=== PATIENT | female | born 1970 | race Caucasian/White ===

== ENCOUNTER 2019-04-02 06:40 | Inpatient (IN) | payer SELFPAY ==
[2019-04-02] MEDS ORDERED: morphine CARPU-JECT 4 MG/1 ML DISP.SYRIN IVPUSH ONE ×2 (06:42→06:44)
[2019-04-02] MEDS ORDERED: morphine SULFATE 4 MG/ML VIAL IVPUSH ONE (06:44)
[2019-04-02] MEDS ORDERED: morphine SULFATE 4 MG/ML VIAL ONE (06:50)
--- NOTE | 2019-04-02 07:09 | PDOC ---
Attending Attestation - Resident Resident Name: TanaSheri - HPI HPI: 04/02/19 08:03 Pt presents to the ED complaining of epigastric pain, nausea without vomiting and left flank pain. Reports that she went to [facility] yesterday, where she was diagnosed with kidney stone without imaging. Presents today because the pain is persistent and severe. Received 4 mg morphine without relief of her pain. - Physicial Exam PE: 04/02/19 08:08 Agree with resident exam. Patient is alert and awake and appears uncomfortable. HEENT: normocephalic, atraumatic CV: rrr no m/r/g pulm: CTA b/ l abdomen: soft, non distended, + epigastric tenderness without guarding or rebound. No CVA tenderness. - Medical Decision Making 04/02/19 08:15 Pt presents to the ED complaining of epigastric pain and nausea. History of Philip Fundiplication. Differential includes biliary disease, obstruction, pancreatitis, less likely ACS. Will check labs and EKG, give pain and nausea control and reassess.
[2019-04-02] MEDS ORDERED: ONDANSETRON 4 MG/2 ML VIAL IVPUSH ONE (07:14)
[2019-04-02] MEDS ORDERED: HYDROmorphone HCL CARPU-JECT 2 MG/1 ML DISP.SYRIN IVPUSH ONE (07:14)
[2019-04-02] MEDS ORDERED: FAMOTIDINE 20 MG/50 ML IVPB 20 MG/50 ML MG IVPB ONE ×3 (07:15→16:46)
[2019-04-02 07:16] VITALS: BMI 26.5
[2019-04-02] MEDS ORDERED: HYDROmorphone HCl 2 MG/ML VIAL ONE (07:20)
[2019-04-02] MEDS ORDERED: ONDANSETRON *ODT* 4 MG TABLET ONE (07:21)
[2019-04-02] MEDS ORDERED: METOCLOPRAMIDE HCL INJECTION 10 MG/2 ML VIAL IVPUSH ONE (07:54)
--- NOTE | 2019-04-02 07:56 | PDOC ---
History of Present Illness - General Chief Complaint: Pain Stated Complaint: ABD PAIN Time Seen by Provider: 04/02/19 07:08 - History of Present Illness Initial Comments: Dallas Giordano is a 49yo woman with a PMH of Philip fundiplication, kidney stones who presents with severe epigastric pain, nausea, and sweating as well as right flank pain. She reports that she had the flank pain yesterday, and she went to [facility]. She reports that she was diagnosed with a kidney stone; she was given morphine and zofran with relief of her symptoms and was discharged with Percocet and zofran. She felt better in the evening, but was unable to eat or drink due to nausea. This morning, she started to feel worse again. She tried taking her percocet and 8mg SL zofran without relief. She states that she "can't throw up" due to her surgery, but she has had persistent retching and nausea. She also reports sweating and severe epigastric pain. The percocet helped with the flank pain, but her other symptoms have continued. She says that she is unable to even drink water at home. Ms Giordano was given 4mg IV morphine as well as 0.5mg dilaudid, zofran, and pepcid after arrival in the ED, prior to my evaluation, and states that her flank pain has resolved but she continues to have severe nausea, persistent retching, and epigastric pain. Past History - Past Medical History Allergies/Adverse Reactions: Allergies Allergy/AdvReac Type Severity Reaction Status Date / Time No Known Allergies Allergy Verified 04/02/19 07:16 Home Medications: Ambulatory Orders Ondansetron HCl [Zofran] 4 mg PO BID 04/02/19 COPD: No - Surgical History Abdominal Surgery: Yes - Immunization History Immunization Up to Date: Yes - Suicide/Smoking/Psychosocial Hx Smoking History: Never smoked Have you smoked in the past 12 months: No Information on smoking cessation initiated: No Hx Alcohol Use: No Drug/Substance Use Hx: No Review of Systems - Review of Systems Comments:: General: No fevers, no chills, no weight or appetite change, no malaise, + sweating HEENT: No changes in vision, no changes in hearing, no congestion, no sore throat CV: No chest pain, no palpitations, no LE edema Pulm: No SOB, no cough, no wheezing GI: +Nausea, no vomiting, +abd pain, no change in bowel habits, no melena : No frequency, no urgency, no dysuria, +Rt flank pain Musc: No back pain, no joint swelling, no recent injury Skin: No rash, no lesions, no erythema Endo: No excessive thirst, no heat/cold intolerance Heme: No unusual bruising or bleeding, no swollen glands Neuro: No syncope, no numbness/tingling, no focal weakness Vasc: No claudication Psych: No recent change in mood, no SI or HI *Physical Exam - Vital Signs Last Vital Signs Temp Pulse Resp BP Pulse Ox 97.7 F 76 22 H 124/83 100 04/02/19 07:09 04/02/19 07:09 04/02/19 07:09 04/02/19 07:09 04/02/19 07:09 - Physical Exam Comments: General: Uncomfortable but in no acute distress HEENT: PERRL, EOMI, MMM, voice normal Cards: RRR, no murmur appreciated Pulm: Comfortable on room air, clear to auscultation bilaterally Abd: Soft, non-distended, epigastric TTP, well-healed laparoscopic surgical scars : Minimal CVA tenderness Ext: Atraumatic. No LE edema. ROM intact Vasc: Extremities WWP Skin: Normal color, no rashes or lesions Neuro: A&Ox3, CN grossly intact, normal speech, motor/sensory grossly intact and symmetric Psych: Anxious, upset ED Treatment Course - LABORATORY CBC & Chemistry Diagram: 04/02/19 08:04 04/02/19 08:04 - Medications Given in the ED: ED Medications Discontinued Medications Generic Name Dose Route Start Last Admin Trade Name Freq PRN Reason Stop Dose Admin Hydromorphone HCl 1 mg 04/02/19 07:14 04/02/19 07:31 Dilaudid Injection - IVPUSH 04/02/19 07:15 1 mg ONCE ONE Administration Famotidine/Sodium Chloride 20 mg in 50 mls @ 100 mls/hr 04/02/19 07:15 07:32 Pepcid 20 Mg Premixed Ivpb - IVPB 04/02/19 07:44 100 mls/hr ONCE ONE Administration Morphine Sulfate 4 mg 04/02/19 06:42 04/02/19 06:59 Morphine Injection - IVPUSH 04/02/19 06:43 Not Given ONCE ONE Morphine Sulfate 4 mg 04/02/19 06:44 04/02/19 06:58 Morphine Injection - IVPUSH 04/02/19 06:45 4 mg ONCE ONE Administration Ondansetron HCl 4 mg 04/02/19 07:14 04/02/19 07:32 Zofran Injection IVPUSH 04/02/19 07:15 4 mg ONCE ONE Administration Medical Decision Making - Medical Decision Making 04/02/19 07:56 Dallas Giordano is a 49yo woman with a PMH of Philip fundiplication, kidney stones who presents with severe epigastric pain, nausea, and sweating as well as right flank pain. She reports that she had the flank pain yesterday, and she went to [facility]. She reports that she was diagnosed with a kidney stone; she was given morphine and zofran with relief of her symptoms and was discharged with Percocet and zofran. She felt better in the evening, but was unable to eat or drink due to nausea. This morning, she started to feel worse again. She tried taking her percocet and 8mg SL zofran without relief. She states that she "can't throw up" due to her surgery, but she has had persistent retching and nausea. She also reports sweating and severe epigastric pain. The percocet helped with the flank pain, but her other symptoms have continued. She says that she is unable to even drink water at home. Ms Giordano was given 4mg IV morphine as well as 0.5mg dilaudid, zofran, and pepcid after arrival in the ED, prior to my evaluation, and states that her flank pain has resolved but 04/02/19 09:00 - Pt more comfortable, sleeping - Labs reviewed. CBC, chemistry unremarkable - UA w/ 3+ blood, c/w report of kidney stone 04/02/19 10:05 - CT shows 7mm left kidney stone, appears to be partially obstructing. Moderate- severe hydronephrosis and hydroureter - Reassessed pt. More comfortable, nausea improved - [employer] sent for admission for large kidney stone, severe hydro, and PO intolerance 04/02/19 10:29 - Spoke to Dr Mcdonnell. Will be admitted to med/surg on Dr Motley' service - Call placed to urology, waiting for call back 04/02/19 10:34 - Spoke to Dr Mcmanus. Recommending ceftriaxone, NPO. Will see later Discussed with Dr Guerrero. Sheri Fajardo PGY2 *DC/Admit/Observation/Transfer Diagnosis at time of Disposition: Left nephrolithiasis, Hydronephrosis of left kidney Nausea & vomiting Qualifiers: Vomiting type: unspecified Vomiting Intractability: unspecified Qualified Code( s): R11.2 - Nausea with vomiting, unspecified - Discharge Dispostion Condition at time of disposition: Fair Decision to Admit order: Yes - Referrals - Patient Instructions - Post Discharge Activity
[2019-04-02] MEDS ORDERED: METOCLOPRAMIDE HCL INJECTION 10 MG/2 ML VIAL ONE (08:29)
[2019-04-02 08:34] LABS: PH,URINE 5.5 (5.0-8.0); URINE APPEARANCE CLOUDY; URINE BILIRUBIN NEGATIVE (NEGATIVE); URINE COLOR YELLOW; URINE GLUCOSE (UA) TRACE (NEGATIVE); URINE KETONE 4+ (NEGATIVE); URINE LEUK ESTERASE NEGATIVE (NEGATIVE); URINE NITRITE NEGATIVE (NEGATIVE); URINE PROTEIN 1+ (NEGATIVE); URINE UROBILINOGEN 0.2 mg/dL (0.2-1.0)
[2019-04-02 08:41] LABS: BASO % 0.1 % (0-2.0); EOS % 0.1 % (0-4.5); HEMATOCRIT 34.7 % (32.4-45.2); LYMPH % 5.3 % (8-40); MCH 30.2 pg (25.7-33.7); MCHC 34.5 g/dl (32.0-36.0); MEAN CELL VOLUME 87.4 fl (80-96); MONO % 4.9 % (3.8-10.2); NEUT % 89.6 % (42.8-82.8); PLATELET COUNT 169 K/MM3 (134-434); RBC 3.96 M/mm3 (3.60-5.2); RDW 13.5 % (11.6-15.6); WHITE BLOOD COUNT 10.4 K/mm3 (4.0-10.0)
[2019-04-02 08:51] LABS: ALBUMIN 3.4 g/dl (3.4-5.0); BILIRUBIN,TOTAL 0.6 mg/dL (0.2-1); BLOOD UREA NITROGEN 12.9 mg/dL (7-18); CALCIUM 8.2 mg/dL (8.5-10.1); CREATININE 0.8 mg/dL (0.55-1.3); POTASSIUM 3.7 mmol/L (3.5-5.1); TOT PROT 6.3 g/dl (6.4-8.2)
[2019-04-02] MEDS ORDERED: ONDANSETRON 4 MG/2 ML VIAL IVPUSH PRN ×2 (10:56→17:37)
[2019-04-02] MEDS ORDERED: ACETAMINOPHEN 1000 MG/100 ML VIAL (NON FORMULARY) IVPB PRN ×2 (10:57→18:04)
[2019-04-02] MEDS ORDERED: LACTATED RINGERS SOLUTION 1,000 ML IV SCH ×2 (11:00→17:45)
[2019-04-02] MEDS ORDERED: CEFTRIAXONE 1 GM/50 ML BAG ONE (11:04)
--- NOTE | 2019-04-02 11:16 | HP ---
CHIEF COMPLAINT:left flank pain, epigastric discomfort PCP:Dr. Davis HISTORY OF PRESENT ILLNESS: Patient is a 49 year old female with past medical history significant for kidney stones and s/p Philip fundoplication (05/2018), presented to the ED due to worsening left flank pain, nausea, retching and epigastric pain for 1 day. Patient reported she experienced sudden severe 10/10 left flank pain radiating to the groin that started yesterday. She went to [facility] where she was diagnosed to have a kidney stone and was sent home on percocet and zofran for nausea, and was advised to drink plenty of water. She also reported minimal urine output despite 2L of IVF given to her at the hospital. Overnight, patient continued to experience the pain and nausea, with episodes of retching. Since the Philip fundoplication in 2017, patient was advised that she should not have episodes of retching or vomiting. This morning, with continued nausea, patient started experiencing epigastric pain and went to the ED. Patient reported denies any fever, chills, headache, dizziness, chest pain, SOB, palpitations, diarrhea, constipation. Of note, patient had history of multiple kidney stones for more than 15 years. She reported the stones would pass spontaneously and had no history of stent placement. She had stones sent to pathology before but is unsure of the results. ER course was notable for: (1)IV Morphine 4mg, Dilaudid 0.5mg (2)Zofran, pepcid, diphenhydramine (3)CTAP: 7mm Left distal ureteral stone, partially obstructing with moderately severe hydronephrosis and hydroureter. Recent Travel:denies PAST MEDICAL HISTORY: kidney stones PAST SURGICAL HISTORY: cholecystectomy Philip fundoplication Social History: Smoking:denies Alcohol:occasional Drugs: denies Family History: Daughter - kidney stones in her 30s, bilateral stent placed Allergies No Known Allergies Allergy (Verified 04/02/19 07:16) HOME MEDICATIONS: Home Medications Medication Instructions Recorded Ondansetron HCl [Zofran] 4 mg PO BID 04/02/19 REVIEW OF SYSTEMS CONSTITUTIONAL: Absent: fever, chills, diaphoresis, generalized weakness, malaise, loss of appetite, weight change HEENT: Absent: rhinorrhea, nasal congestion, throat pain, throat swelling, difficulty swallowing, mouth swelling, ear pain, eye pain, visual changes CARDIOVASCULAR: Absent: chest pain, syncope, palpitations, irregular heart rate, lightheadedness , peripheral edema RESPIRATORY: Absent: cough, shortness of breath, dyspnea with exertion, orthopnea, wheezing, stridor, hemoptysis GASTROINTESTINAL:epigastric pain, nausea, retching Absent: abdominal distension,vomiting, diarrhea, constipation, melena, hematochezia GENITOURINARY: Left flank pain Absent: dysuria, frequency, urgency, hesitancy, hematuria, genital pain MUSCULOSKELETAL: Absent: myalgia, arthralgia, joint swelling, back pain, neck pain SKIN: Absent: rash, itching, pallor HEMATOLOGIC/IMMUNOLOGIC: Absent: easy bleeding, easy bruising, lymphadenopathy, frequent infections ENDOCRINE: Absent: unexplained weight gain, unexplained weight loss, heat intolerance, cold intolerance NEUROLOGIC: Absent: headache, focal weakness or paresthesias, dizziness, unsteady gait, seizure, mental status changes, bladder or bowel incontinence PSYCHIATRIC: Absent: anxiety, depression, suicidal or homicidal ideation, hallucinations. PHYSICAL EXAMINATION Vital Signs - 24 hr 04/02/19 07:09 Temperature 97.7 F Pulse Rate 76 Respiratory 22 H Rate Blood Pressure 124/83 O2 Sat by Pulse 100 Oximetry (%) GENERAL: Awake, alert, and fully oriented, in no acute distress. HEAD: Normal with no signs of trauma. EYES: PERRLA, EOMI, sclera anicteric, conjunctiva clear. EARS, NOSE, THROAT: Moist mucous membranes. NECK: Normal range of motion, supple. LUNGS: Breath sounds equal, clear to auscultation bilaterally. HEART: Regular rate and rhythm, normal S1 and S2 without murmur, rub or gallop. ABDOMEN: Soft, nontender, not distended, normoactive bowel sounds. MUSCULOSKELETAL: Normal range of motion at all joints. +left CVA tenderness. UPPER EXTREMITIES: 2+ pulses, warm, well-perfused. No peripheral edema. LOWER EXTREMITIES: 2+ pulses, warm, well-perfused. No peripheral edema. NEUROLOGICAL: AAOx3. Cranial nerves II-XII grossly intact. Normal speech. Normal gait. PSYCHIATRIC: Cooperative. Good eye contact. Appropriate mood and affect. SKIN: Warm, dry, normal turgor, no rashes or lesions noted. Laboratory Results - last 24 hr 04/02/19 04/02/19 04/02/19 08:04 08:04 08:04 WBC 10.4 H RBC 3.96 Hgb 12.0 Hct 34.7 MCV 87.4 MCH 30.2 MCHC 34.5 RDW 13.5 Plt Count 169 MPV 10.0 Absolute Neuts (auto) 9.3 H Neutrophils % 89.6 H Lymphocytes % 5.3 L Monocytes % 4.9 Eosinophils % 0.1 Basophils % 0.1 Nucleated RBC % 0 Sodium 141 Potassium 3.7 Chloride 112 H Carbon Dioxide 23 Anion Gap 6 L BUN 12.9 Creatinine 0.8 Est GFR (CKD-EPI)AfAm 101.75 Est GFR (CKD-EPI)NonAf 87.79 Random Glucose 139 H Calcium 8.2 L Total Bilirubin 0.6 AST 56 H ALT 54 Alkaline Phosphatase 75 Total Protein 6.3 L Albumin 3.4 Lipase 100 Urine Color Urine Appearance Urine pH Ur Specific [place] Urine Protein Urine Glucose (UA) Urine Ketones Urine Blood Urine Nitrite Urine Bilirubin Urine Urobilinogen Ur Leukocyte Esterase Urine HCG, Qual 04/02/19 04/02/19 08:13 08:13 WBC RBC Hgb Hct MCV MCH MCHC RDW Plt Count MPV Absolute Neuts (auto) Neutrophils % Lymphocytes % Monocytes % Eosinophils % Basophils % Nucleated RBC % Sodium Potassium Chloride Carbon Dioxide Anion Gap BUN Creatinine Est GFR (CKD-EPI)AfAm Est GFR (CKD-EPI)NonAf Random Glucose Calcium Total Bilirubin AST ALT Alkaline Phosphatase Total Protein Albumin Lipase Urine Color Yellow Urine Appearance Cloudy Urine pH 5.5 Ur Specific [place] 1.031 Urine Protein 1+ H Urine Glucose (UA) Trace Urine Ketones 4+ H Urine Blood 3+ H Urine Nitrite Negative Urine Bilirubin Negative Urine Urobilinogen 0.2 Ur Leukocyte Esterase Negative Urine HCG, Qual Negative ASSESSMENT/PLAN: Patient is a 49 year old female with past medical history significant for kidney stones and s/p Philip fundoplication (05/2018), presented to the ED due to worsening left flank pain, nausea, retching and epigastric pain for 1 day. #Left ureteral stone -CTAP: 7mm Left distal ureteral stone, partially obstructing with moderately severe hydronephrosis and hydroureter. -Tylenol, Toradol and Dilaudid PRN for pain -Zofran PRN for nausea/vomiting -Will start Tamsulosin 0.4mg daily -IVF -Urology (Dr. Mcmanus) consulted. Recommendations appreciated. -NPO -IV Ceftriaxone given at the ED #FEN -IV D5-1/2 NS @200cc/hr -Electrolytes wnl, routine bmp monitoring -NPO #Prophylaxis -SCDs, for possible surgery #Disposition -full code -admit to med surg Visit type - Emergency Visit Emergency Visit: Yes ED Registration Date: 04/02/19 Care time: The patient presented to the Emergency Department on the above date and was hospitalized for further evaluation of their emergent condition. - New Patient This patient is new to me today: Yes Date on this admission: 04/08/19 - Critical Care Critical Care patient: No ATTENDING PHYSICIAN STATEMENT I saw and evaluated the patient. I reviewed the resident's note and discussed the case with the resident. I agree with the resident's findings and plan as documented. SUBJECTIVE: OBJECTIVE: ASSESSMENT AND PLAN:
[2019-04-02] MEDS ORDERED: morphine CARPU-JECT 2 MG/1 ML DISP.SYRIN IVPUSH ONE (11:50)
[2019-04-02] MEDS ORDERED: HYDROmorphone HCl 2 MG/ML VIAL IVPB PRN ×2 (11:52→18:04)
--- NOTE | 2019-04-02 11:55 | EKG ---
Test Reason : Blood Pressure : / mmHG Vent. Rate : 056 BPM Atrial Rate : 056 BPM P-R Int : 122 ms QRS Dur : 080 ms QT Int : 418 ms P-R-T Axes : 067 044 055 degrees QTc Int : 403 ms POOR DATA QUALITY, INTERPRETATION MAY BE ADVERSELY AFFECTED SINUS BRADYCARDIA NO PREVIOUS ECGS AVAILABLE Confirmed by RUFUS MARTÍNEZ MD ([id number]) on 04/02/2019 11:54:47 AM Referred By: Confirmed By:RUFUS MARTÍNEZ MD
[2019-04-02] MEDS ORDERED: KETOROLAC TROMETHAMINE 30 MG/1 ML VIAL IM SCH (12:00)
[2019-04-02] MEDS ORDERED: DEXTROSE 5%-0.45% SALINE 1,000 ML IV SCH (12:00)
[2019-04-02] MEDS: ONDANSETRON 4 MG/2 ML VIAL IVPUSH PRN ×2 (12:04→16:35)
[2019-04-02] MEDS ORDERED: TAMSULOSIN HCL 0.4 MG CAP PO SCH (12:15)
--- NOTE | 2019-04-02 15:43 | PN ---
Teaching Attending Note Name of Resident: Magda Reyes ATTENDING PHYSICIAN STATEMENT I saw and evaluated the patient. I reviewed the resident's note and discussed the case with the resident. I agree with the resident's findings and plan as documented. SUBJECTIVE:49yo F wtih PMH recurrent nephrolithasis never requiring intervention and was always conservatively managed. c/o L flank pain assoc with nausea but no vomiting. Pain radiating to the groin and went to [facility] and told she had kidney stone and sent home on percocet and zofran. return due to worsening pain. states she has poor diet with lots of soda and red meats. pain now resolved with pain medication. denies CP, SOB, fever, chills, diarrhea family history significant for nephrolithasis OBJECTIVE: Last Vital Signs Temp Pulse Resp BP Pulse Ox 97.1 F L 65 16 97/59 L 100 04/02/19 11:20 04/02/19 11:20 04/02/19 11:20 04/02/19 11:20 04/02/19 11:20 General NAD CV S1 S2 RRR no murmur/rub/gallop Lungs CTA B/L no wheezing/rales/rhonchi Abdomen soft NT/ND no flank tenderness or suprapubic tenderness ASSESSMENT AND PLAN: 49yo F wtih PMH recurrent nephrolithasis with L flank pain with radiation to the groin and found to have 7mm renal stone wiht moderate-severe hydronephrosis 1. L sided nephrolithasis with hydronephrosis- Medicine admission. obstructing stone will need intervention. NPO, IVF, pain control and flomax. Ceftriaxone x1 given. strain urine although low possiblity of passage on its own. Urology aware and plan for OR tonight. will need stone analysis. counselling on dietary changes. will need repeat U/s next week to evaluate for resolution of hydro. follow up further recommendations per urology 2. DVT ppx- SCD 3. anticipate discharge in next 24H
[2019-04-02] MEDS ORDERED: PROPOFOL 20 ML ONE (16:34)
[2019-04-02] MEDS ORDERED: MIDAZOLAM HCL 2 MG/2 ML SINGLE DOSE VIAL ONE (16:34)
[2019-04-02] MEDS ORDERED: ACETAMINOPHEN INJECTION 100 ML IVPB ONE (16:49)
[2019-04-02] MEDS ORDERED: SUCCINYLCHOLINE CHLORIDE 200 MG/10 ML SYRINGE ONE (16:53)
[2019-04-02] MEDS ORDERED: ceFAZolin SODIUM 1 GM VIAL IVPB ONE (17:01)
--- NOTE | 2019-04-02 17:31 | OP ---
Operative Note - Note: Operative Date: 04/02/19 Pre-Operative Diagnosis: left ureteral stone, hydro Operation: left ULL, stent Findings: left ureteral stone Post-Operative Diagnosis: Same as Pre-op Surgeon: Holden Mcmanus Anesthesia: General Drains & Tubes with Location: 22x 6 JJ ureteral stent. left
[2019-04-02] MEDS ORDERED: oxyCODONE HCL 5 MG TABLET PO PRN (17:37)
[2019-04-02] MEDS ORDERED: PROMETHAZINE HCL 25 MG/1 ML VIAL IVPUSH PRN (17:37)
[2019-04-02] MEDS: DEXTROSE 5%-0.45% SALINE 1,000 ML IV SCH (18:00)
[2019-04-02] MEDS: KETOROLAC TROMETHAMINE 30 MG/1 ML VIAL IM SCH (21:08)
[2019-04-03] MEDS: KETOROLAC TROMETHAMINE 30 MG/1 ML VIAL IM SCH ×2 (03:00→09:16)
[2019-04-03] MEDS: DEXTROSE 5%-0.45% SALINE 1,000 ML IV SCH (03:10)
[2019-04-03 08:21] LABS: BASO % 0.2 % (0-2.0); HEMATOCRIT 31.2 % (32.4-45.2); HEMOGLOBIN 10.6 GM/dL (10.7-15.3); LYMPH % 8.4 % (8-40); MCH 29.7 pg (25.7-33.7); MCHC 33.9 g/dl (32.0-36.0); MEAN CELL VOLUME 87.4 fl (80-96); MEAN PLT VOLUME 10.2 fl (7.5-11.1); MONO % 9.3 % (3.8-10.2); NEUT % 82.1 % (42.8-82.8); PLATELET COUNT 156 K/MM3 (134-434); RBC 3.57 M/mm3 (3.60-5.2); RDW 13.5 % (11.6-15.6); WHITE BLOOD COUNT 11.1 K/mm3 (4.0-10.0)
[2019-04-03] MEDS ORDERED: TAMSULOSIN HCL 0.4 MG CAP PO SCH ×2 (08:30)
[2019-04-03 08:36] LABS: ALBUMIN 2.7 g/dl (3.4-5.0); BILIRUBIN,TOTAL 0.3 mg/dL (0.2-1); CALCIUM 7.9 mg/dL (8.5-10.1); CREATININE 0.8 mg/dL (0.55-1.3); MAGNESIUM 1.6 mg/dL (1.8-2.4); PHOSPHOROUS 2.5 mg/dL (2.5-4.9); POTASSIUM 3.8 mmol/L (3.5-5.1); TOT PROT 5.4 g/dl (6.4-8.2)
[2019-04-03] MEDS ORDERED: ENOXAPARIN NA (PORCINE) 40 MG/0.4 ML DISP.SYRIN SQ SCH (10:00)
--- NOTE | 2019-04-03 12:02 | DS ---
Physical Exam: SUBJECTIVE: Patient seen and examined. asymptomatic. states the stent fell out yesterday. Vanessaafen was made aware and said no intervention at this time. pt has not have any dysuria or hematuria. denies Cp, SOb, fever, chills, N/V/C/D OBJECTIVE: Vital Signs Period Temp Pulse Resp BP Sys/[place] Pulse Ox Last 24 Hr 97.6 F-98.6 F 9-89 16-20 97-135/59-87 95-100 PHYSICAL EXAM GENERAL: The patient is awake, alert, and fully oriented, in no acute distress. HEAD: Normal with no signs of trauma. EYES: PERRL, extraocular movements intact, sclera anicteric, conjunctiva clear. ENT: Ears normal, nares patent, oropharynx clear without exudates, moist mucous membranes. NECK: Trachea midline, full range of motion, supple. LUNGS: Breath sounds equal, clear to auscultation bilaterally, no wheezes, no crackles, no accessory muscle use. HEART: Regular rate and rhythm, S1, S2 without murmur, rub or gallop. ABDOMEN: Soft, nontender, nondistended, normoactive bowel sounds, no guarding, no rebound, no hepatosplenomegaly, no masses. EXTREMITIES: 2+ pulses, warm, well-perfused, no edema. NEUROLOGICAL: Cranial nerves II through XII grossly intact. Normal speech, gait not observed. PSYCH: Normal mood, normal affect. SKIN: Warm, dry, normal turgor, no rashes or lesions noted. LABS Laboratory Results - last 24 hr 04/03/19 04/03/19 04/03/19 07:00 07:00 07:00 WBC 11.1 H RBC 3.57 L Hgb 10.6 L Hct 31.2 L MCV 87.4 MCH 29.7 MCHC 33.9 RDW 13.5 Plt Count 156 MPV 10.2 Absolute Neuts (auto) 9.1 H Neutrophils % 82.1 Lymphocytes % 8.4 D Monocytes % 9.3 D Eosinophils % 0.0 D Basophils % 0.2 Nucleated RBC % 0 Sodium 141 Potassium 3.8 Chloride 111 H Carbon Dioxide 25 Anion Gap 6 L BUN 8.0 Creatinine 0.8 Est GFR (CKD-EPI)AfAm 101.75 Est GFR (CKD-EPI)NonAf 87.79 Random Glucose 136 H Calcium 7.9 L Phosphorus 2.5 Magnesium 1.6 L Total Bilirubin 0.3 AST 34 ALT 47 Alkaline Phosphatase 60 Total Protein 5.4 L Albumin 2.7 L Blood Type A POSITIVE Antibody Screen Negative 04/03/19 09:55 WBC RBC Hgb Hct MCV MCH MCHC RDW Plt Count MPV Absolute Neuts (auto) Neutrophils % Lymphocytes % Monocytes % Eosinophils % Basophils % Nucleated RBC % Sodium Potassium Chloride Carbon Dioxide Anion Gap BUN Creatinine Est GFR (CKD-EPI)AfAm Est GFR (CKD-EPI)NonAf Random Glucose Calcium Phosphorus Magnesium Total Bilirubin AST ALT Alkaline Phosphatase Total Protein Albumin Blood Type A POSITIVE Antibody Screen HOSPITAL COURSE: Date of Admission:04/02/19 Date of Discharge: 04/03/19 Admitting diagnosis: L obstructing nephrolithasis with mod-severe hydronephrosis Pre hospital course 49 year old female with past medical history significant for kidney stones and s/p Philip fundoplication (05/2018), presented to the ED due to worsening left flank pain, nausea, retching and epigastric pain for 1 day. Patient reported she experienced sudden severe 10/10 left flank pain radiating to the groin that started yesterday. She went to [facility] where she was diagnosed to have a kidney stone and was sent home on percocet and zofran for nausea, and was advised to drink plenty of water. She also reported minimal urine output despite 2L of IVF given to her at the hospital. Overnight, patient continued to experience the pain and nausea, with episodes of retching. Since the Philip fundoplication in 2017, patient was advised that she should not have episodes of retching or vomiting. This morning, with continued nausea, patient started experiencing epigastric pain and went to the ED. Patient reported denies any fever, chills, headache, dizziness, chest pain, SOB, palpitations, diarrhea, constipation. Of note, patient had history of multiple kidney stones for more than 15 years. She reported the stones would pass spontaneously and had no history of stent placement. She had stones sent to pathology before but is unsure of the results. Subsequent hospital course Admitted to medicine. NPO, IVF and flomax. went for stent placement. stent fell out but was told that Urology was contacted and stated nothing to do at this time. pain resolved and tolerating diet. d/c home on flomax with urology follow up. stressed importance of follow up and dietary changes to prevent stone formation. will need repeat renal u/s to evlaute for hydro resolution Minutes to complete discharge: 40 Discharge Summary Reason For Visit: NAUSEA AND VOMITING,HYDRONEPHROSIS, OF LFT KIDNEY, Current Active Problems Hydronephrosis of left kidney (Acute) Left nephrolithiasis (Acute) Nausea & vomiting (Acute) Condition: Good - Instructions Diet, Activity, Other Instructions: You were admitted to the hospital due to a kidney stone that was blocked on your left side. This resulted in your Left kidney to be swollen. You underwent a procedure to alleviate that blockage. A stent was placed but it did fall out Conitnues to drink plenty of water. Refer to handout on foods to avoid Follow up with your primary care doctor as you will need to have a repeat ultrasound of your kidneys to make sure this swelling has resolved Follow up with urology on 04/06 at 9am. His contact information has been provided. You should have your stones evaluated to see what type they are to prevent them in the future. Return to the ER if your symptoms worsen or develop fever (temp >101) Referrals: Randy Oliveira MD [Staff Physician] - Holden Mcmanus MD [Staff Physician] - Disposition: HOME - Home Medications Comprehensive Discharge Medication List: Ambulatory Orders Tamsulosin HCl [Flomax -] 0.4 mg PO DAILY@0830 #30 [id number] 04/03/19 This patient is new to me today: No Emergency Visit: Yes ED Registration Date: 04/02/19 Care time: The patient presented to the Emergency Department on the above date and was hospitalized for further evaluation of their emergent condition. Critical Care patient: No - Discharge Referral Referred to [facility] No
[2019-04-03 12:09] VITALS: BP 145/84; PULSE 79; TEMP 99
--- NOTE | 2019-04-03 12:17 | OP ---
DATE OF OPERATION: 04/02/2019 PREOPERATIVE DIAGNOSIS: Left ureteral calculus. POSTOPERATIVE DIAGNOSIS: Left ureteral calculus. PROCEDURE: Cystoscopy, left ureteroscopy, laser lithotripsy, left ureteral stent placement. ANESTHESIA: General. SURGEON: Holden Mcmanus MD FINDINGS: A 7-mm stone in distal left ureter. DRAINS: The 6 x 22 double-J ureteral stent. PREOPERATIVE INDICATIONS: The patient is a 49-year-old female who presents with an obstructing 7-mm stone in her ureter. After attempts at medical expulsive therapy, she was brought to the OR for laser lithotripsy. The risks, benefits, and alternatives were discussed with the patient including the risk of bleeding, infection, injury to the ureter and injury to adjacent organs. She understands the risks and agrees to the procedure. OPERATION: The patient was brought to the OR, placed on the table in the supine position, given anesthesia and antibiotics, and placed in the modified lithotomy position. The groin was prepped and draped sterilely. Cystoscopy was performed. Scope was placed in the bladder. There was a mild cystocele noted. However, nothing within the ladder was remarkable. Both UOs were seen, and a wire was passed up into the left kidney, at which point, a cruz of fluid was seen. A 10-Guyanese dual lumen catheter was used to dilated the ureteral orifice, and a 7.5-Guyanese semi-rigid ureteroscope was passed into the left ureter. The stone was visualized in the distal ureter. Using Holmium Laser Fiber, the stone was broken up into small pieces of sand. No other stones were seen along the course of the ureter. Over the remaining wire, a 6 x 22 double-J ureteral stent was placed, one loop in the kidney and one loop in the bladder. Bladder was emptied. The patient was woken up. HOLDEN MCMANUS M.D. [id number]
--- NOTE | 2019-04-07 20:25 | PATH ---
Surgical Pathology Report Patient Name: JASON BUTLER [facility]. Rec. #: [id number] /Age/Gender: 1970 (Age: 49) / F Account: [id number] Location: [address] [place] [address]/[facility] Taken: 04/06/2019 Received: 04/06/2019 Reported: 04/07/2019 Physicians: Adelia Motley M.D. Specimen(s) Received STONE Clinical History Stone Final Diagnosis STONE, REMOVAL: CALCULI. MACROSCOPIC DIAGNOSIS. Electronically Signed Camryn Rodríguez M.D. Gross Description Received fresh labeled "stone analysis," is a 0.4 cm greatest dimension mack nielsen, irregular calculus which is sent for chemical analysis. DL/04/06/2019 saudi/04/06/2019
== END 2019-04-03 13:51 | disposition home or self-care (01) | DRG 463 ==
LOC: JER 06:40 → JERBED 10:30 → J6S 11:36
PROVIDERS: ADMIT Internal Medicine; ATTEND Internal Medicine
PROC: 0T778DZ Dilation of Left Ureter with Intraluminal Device, Via Natural or Artificial Opening Endoscopic (ICD-10-PCS; principal; 2019-04-02 16:50)
DX: N13.6 Pyonephrosis (principal); N20.1 Calculus of ureter; R11.2 Nausea with vomiting, unspecified; K21.9 Gastro-esophageal reflux disease without esophagitis; R33.9 Retention of urine, unspecified; E87.6 Hypokalemia
CPT/HCPCS: 36415; 74176-TC; 76000-TC-FY; 80053; 81003; 83690; 83735; 84100; 84703; 85025; 86850; 86900; 86901; 88300-TC; 93005; 93010; 94760; 99285-25; J0131

== ENCOUNTER 2019-04-04 09:26 | Emergency (ER) | payer BC | END 2019-04-04 12:15 | disposition home or self-care (01) | LOC: JER 09:26 ==

== ENCOUNTER 2019-04-04 14:59 | Inpatient (IN) | payer BC ==
[2019-04-04] MEDS ORDERED: METOCLOPRAMIDE HCL INJECTION 10 MG/2 ML VIAL IVPUSH ONE ×2 (15:18→23:00)
[2019-04-04] MEDS ORDERED: FAMOTIDINE 20 MG/50 ML IVPB 20 MG/50 ML MG IVPB ONE ×2 (15:18→15:58)
[2019-04-04] MEDS ORDERED: morphine CARPU-JECT 2 MG/1 ML DISP.SYRIN IVPUSH ONE ×2 (15:18→19:35)
[2019-04-04] MEDS ORDERED: METOCLOPRAMIDE HCL INJECTION 10 MG/2 ML VIAL ONE ×2 (15:56→23:11)
[2019-04-04] MEDS ORDERED: LORazepam 2 MG/ML SDV VIAL ONE ×2 (15:59→19:38)
[2019-04-04 16:01] LABS: BASO % 0.5 % (0-2.0); EOS % 0.2 % (0-4.5); HEMATOCRIT 35.8 % (32.4-45.2); HEMOGLOBIN 11.9 GM/dL (10.7-15.3); LYMPH % 14.9 % (8-40); MCH 28.9 pg (25.7-33.7); MCHC 33.2 g/dl (32.0-36.0); MEAN CELL VOLUME 86.9 fl (80-96); MEAN PLT VOLUME 9.9 fl (7.5-11.1); MONO % 8.2 % (3.8-10.2); NEUT % 76.2 % (42.8-82.8); PLATELET COUNT 189 K/MM3 (134-434); RBC 4.12 M/mm3 (3.60-5.2); RDW 13.4 % (11.6-15.6); WHITE BLOOD COUNT 11.2 K/mm3 (4.0-10.0)
[2019-04-04 16:24] LABS: ALBUMIN 3.6 g/dl (3.4-5.0); BILIRUBIN,TOTAL 0.5 mg/dL (0.2-1); BLOOD UREA NITROGEN 10.7 mg/dL (7-18); CALCIUM 8.6 mg/dL (8.5-10.1); CREATININE 0.9 mg/dL (0.55-1.3); POTASSIUM 3.1 mmol/L (3.5-5.1); TOT PROT 6.7 g/dl (6.4-8.2)
--- NOTE | 2019-04-04 16:31 | PDOC ---
Documentation entered by Nancy Desai SCRIBE, acting as scribe for Gladys Hermosillo DO. Gladys Hermosillo, : This documentation has been prepared by the Lloyd ma Mackenzie, SCRIBE, under my direction and personally reviewed by me in its entirety. I confirm that the documentation accurately reflects all work , treatment, procedures, and medical decision making performed by me. History of Present Illness - General Chief Complaint: Pain Stated Complaint: PAIN Time Seen by Provider: 04/04/19 15:09 - History of Present Illness Initial Comments: The patient is a 49 year old female, with a significant PMH of Maksim fundoplication and kidney stones (04/02) who is returning to the emergency department for the second time today with extreme sharp epigastric abdominal pain. Patient reports her pain is similar to symptoms she felt before having her Nisan fundoplication surgery several years ago and is unrelated to symptoms of her UTI from earlier today and unrelated to symptoms associated with her kidney stone episode on 04/02. Patient states after being discharged today she went home, tried to eat something and immediately after felt symptoms of nausea and abdominal pain prompting her return. Patient reports the pain is worsened upon forced inhalation. LBM was today and normal, however she notes she has barely eaten since the onset of her kidney stone episode 4 days ago. The patient denies chest pain, shortness of breath, headache and dizziness. Denies fever, diarrhea and constipation. Allergies: NKA Past surgical history: As per note PCP: NOS 04/04/19 15:49 Past History - Past Medical History Allergies/Adverse Reactions: Allergies Allergy/AdvReac Type Severity Reaction Status Date / Time No Known Allergies Allergy Verified 04/04/19 09:30 Home Medications: Ambulatory Orders Tamsulosin HCl [Flomax -] 0.4 mg PO DAILY@0830 #30 cap.er.24h 04/03/19 Cephalexin Monohydrate [Keflex -] 500 mg PO BID #14 capsule 04/04/19 COPD: No Kidney Stones: Yes (removed 04/02/19) - Surgical History Abdominal Surgery: Yes - Immunization History Immunization Up to Date: Yes - Suicide/Smoking/Psychosocial Hx Smoking History: Never smoked Have you smoked in the past 12 months: No Hx Alcohol Use: No Drug/Substance Use Hx: No Review of Systems - Review of Systems Able to Perform ROS?: Yes Comments:: GENERAL/CONSTITUTIONAL: (+)Chills. No fever. No weakness. HEAD, EYES, EARS, NOSE AND THROAT: No change in vision. No ear pain or discharge. No sore throat. GASTROINTESTINAL:(+)Severe epigastric abdominal pain. (+)Nausea. No vomiting, diarrhea or constipation. GENITOURINARY: (+)Hematuria. CARDIOVASCULAR: No chest pain or shortness of breath. RESPIRATORY: No cough, wheezing, or hemoptysis. MUSCULOSKELETAL: No joint or muscle swelling or pain. No neck or back pain. SKIN: No rash NEUROLOGIC: No headache, vertigo, loss of consciousness, or change in strength/ sensation. ENDOCRINE: No increased thirst. No abnormal weight change. HEMATOLOGIC/LYMPHATIC: No anemia, easy bleeding, or history of blood clots. ALLERGIC/IMMUNOLOGIC: No hives or skin allergy. 04/04/19 15:51 *Physical Exam - Vital Signs Last Vital Signs Temp Pulse Resp BP Pulse Ox 0/0 L 04/04/19 15:32 - Physical Exam Comments: Constitutional: (+)Acutely distressed. Awake, alert, oriented. Head: Normocephalic. Atraumatic Eyes: PERRL. EOMI. Conjunctivae are not pale. ENT: Mucous membranes are moist and intact. Posterior pharynx without exudates or erythema. Uvula midline. Neck: Supple. Full ROM. No lymphadenopathy. Cardiovascular: Regular rate. Regular rhythm. S1, S2 regular. Distal pulses are 2+ and symmetric. Pulmonary/Chest: No evidence of respiratory distress. Clear to auscultation bilaterally No wheezing, rales or rhonchi. Abdominal: (+)Severe midline epigastric tenderness. (+)Moderate superpubic tenderness. Soft and non-distended. No rebound, guarding or rigidity. No organomegaly. No palpable masses. Good bowel sounds. Back: LCVA tenderness. Musculoskeletal: No edema. No cyanosis. No clubbing. Full range of motion in all extremities. Nocalf tenderness. Radial/pedal pulses are intact and 2+ bilaterally Skin: Skin is warm and dry. No petechiae. No purpura. Neurological: Alert and oriented to person, place, and time. Cranial nerves II -XII are grossly intact. Normal speech. Strength is grossly symmetric. No sensory deficits. Psychiatric: Good eye contact. Normal interaction, affect and behavior. 04/04/19 15:50 ED Treatment Course - LABORATORY CBC & Chemistry Diagram: 04/04/19 15:54 04/04/19 15:54 - ADDITIONAL ORDERS Additional order review: Laboratory Results 04/04/19 15:54 Lipase 64 L 04/04/19 15:54 RBC 4.12 MCV 86.9 MCHC 33.2 RDW 13.4 MPV 9.9 Neutrophils % 76.2 Lymphocytes % 14.9 Monocytes % 8.2 Eosinophils % 0.2 Basophils % 0.5 - RADIOLOGY Radiology Studies Ordered: Category Date Time Status ABDOMEN & PELVIS CT WITH CONTR [CT] Stat CT Scan 04/04/19 15:58 Ordered CHEST PA & LAT [RAD] Stat Radiology 04/04/19 15:18 Ordered Medical Decision Making - Medical Decision Making 04/04/19 16:20 a/p: 49yo female seen earlier today for flank pain and dx with a uti presents back via ambulance for eval of upper abd pain -pt s/p sophie fundoplication at [facility] 2017 ago -pt also s/p ureteral stent for renal stone on friday with Dr. Mcmanus -pt states acute worsening of epigastric pain after eating soup today -pt has dry heaving and nausea -epigastric ttp -will send labs, ct abd/pelvis to eval surgical site -will medicate for n/v -pt hyperventilating -will give ativan for anxiety, nausea -will monitor and reassess 04/04/19 16:30 labs reviewed lipase neg 04/04/19 17:01 pt signed out to the oncoming ED attending pending ct imaging and re-eval will need potassium replacement when awake and ct neg *DC/Admit/Observation/Transfer Diagnosis at time of Disposition: Nausea & vomiting - Referrals - Patient Instructions - Post Discharge Activity - Attestations Physician Attestion: 04/04/19 17:02 I, Dr. Gladys Hermosillo, DO, attest that this document has been prepared under my direction and personally reviewed by me in its entirety. I further attest, that it accurately reflects all work, treatment, procedures and medical decision -making performed by me.
[2019-04-04] MEDS ORDERED: ONDANSETRON 4 MG/2 ML VIAL IVPUSH ONE ×2 (19:35→21:43)
[2019-04-04] MEDS ORDERED: ONDANSETRON 4 MG/2 ML VIAL ONE ×2 (19:38→21:43)
[2019-04-04] MEDS ORDERED: MORPHINE SULFATE 2 MG/ML VIAL ONE (19:38)
[2019-04-04] MEDS ORDERED: SODIUM CHLORIDE 1,000 ML IV STA (23:01)
[2019-04-04] MEDS ORDERED: POTASSIUM CHLORIDE TABS 20 MEQ TABLET.ER (FP) PO ONE ×2 (23:01→23:43)
--- NOTE | 2019-04-04 23:03 | PDOC ---
*Physical Exam - Vital Signs Last Vital Signs Temp Pulse Resp BP Pulse Ox 98.1 F 60 18 141/78 100 04/04/19 15:31 04/04/19 19:49 04/04/19 19:49 04/04/19 19:49 04/04/19 19:49 ED Treatment Course - LABORATORY CBC & Chemistry Diagram: 04/04/19 15:54 04/04/19 15:54 - ADDITIONAL ORDERS Additional order review: Laboratory Results 04/04/19 04/04/19 04/04/19 15:54 15:54 15:54 WBC 11.2 H RBC 4.12 Hgb 11.9 Hct 35.8 MCV 86.9 MCH 28.9 MCHC 33.2 RDW 13.4 Plt Count 189 MPV 9.9 Absolute Neuts (auto) 8.6 H Neutrophils % 76.2 Lymphocytes % 14.9 Monocytes % 8.2 Eosinophils % 0.2 Basophils % 0.5 Nucleated RBC % 0 Sodium 141 Potassium 3.1 L Chloride 106 Carbon Dioxide 24 Anion Gap 11 BUN 10.7 Creatinine 0.9 Est GFR (CKD-EPI)AfAm 88.25 Est GFR (CKD-EPI)NonAf 76.14 Random Glucose 113 H Calcium 8.6 Total Bilirubin 0.5 AST 34 ALT 52 Alkaline Phosphatase 73 Creatine Kinase Troponin I Total Protein 6.7 Albumin 3.6 Lipase 64 L 04/04/19 15:54 WBC RBC Hgb Hct MCV MCH MCHC RDW Plt Count MPV Absolute Neuts (auto) Neutrophils % Lymphocytes % Monocytes % Eosinophils % Basophils % Nucleated RBC % Sodium Potassium Chloride Carbon Dioxide Anion Gap BUN Creatinine Est GFR (CKD-EPI)AfAm Est GFR (CKD-EPI)NonAf Random Glucose Calcium Total Bilirubin AST ALT Alkaline Phosphatase Creatine Kinase 115 Troponin I < 0.02 Total Protein Albumin Lipase 04/04/19 15:54 RBC 4.12 MCV 86.9 MCHC 33.2 RDW 13.4 MPV 9.9 Neutrophils % 76.2 Lymphocytes % 14.9 Monocytes % 8.2 Eosinophils % 0.2 Basophils % 0.5 - Medications Given in the ED: ED Medications Discontinued Medications Generic Name Dose Route Start Last Admin Trade Name Freq PRN Reason Stop Dose Admin Famotidine/Sodium Chloride 20 mg in 50 mls @ 100 mls/hr 04/04/19 15:18 16:27 Pepcid 20 Mg Premixed Ivpb - IVPB 04/04/19 15:47 100 mls/hr ONCE ONE Administration Lorazepam 1 mg 04/04/19 15:57 04/04/19 16:27 Ativan Injection - IVPUSH 04/04/19 15:58 1 mg ONCE ONE Administration Lorazepam 1 mg 04/04/19 19:35 04/04/19 20:03 Ativan Injection - IVPUSH 04/04/19 19:36 1 mg ONCE ONE Administration Metoclopramide HCl 10 mg 04/04/19 15:18 04/04/19 16:27 Reglan Injection - IVPUSH 04/04/19 15:19 10 mg ONCE ONE Administration Morphine Sulfate 2 mg 04/04/19 15:18 04/04/19 17:00 Morphine Injection - IVPUSH 04/04/19 15:19 Not Given ONCE ONE Morphine Sulfate 2 mg 04/04/19 19:35 04/04/19 20:03 Morphine Injection - IVPUSH 04/04/19 19:36 2 mg ONCE ONE Administration Ondansetron HCl 4 mg 04/04/19 19:35 04/04/19 20:03 Zofran Injection IVPUSH 04/04/19 19:36 4 mg ONCE ONE Administration Ondansetron HCl 4 mg 04/04/19 21:43 04/04/19 21:46 Zofran Injection IVPUSH 04/04/19 21:44 4 mg ONCE ONE Administration Medical Decision Making - Medical Decision Making 04/04/19 23:02 CAT scan shows moderate left hydroureterureteronephrosis due to a 7 mm calculus and/or just beyond the left UVJ There may be another punctate calculus in the proximal left ureter. No intrarenal calculus. No AAA discussed with urologist, Dr. Ramos who treated her 24 hours ago and he for follow her in the hospital for her kidney stone 04/05/19 00:12 There was an addendum placed on her ct scan that reads:there are a few gas bubbles at the right margin of the Philip fundoplication which may be intraluminal but their precise location is uncertain. *DC/Admit/Observation/Transfer Diagnosis at time of Disposition: Hydronephrosis of left kidney, Left nephrolithiasis, Epigastric abdominal pain Intractable nausea and vomiting Qualifiers: Vomiting type: unspecified Qualified Code(s): R11.2 - Nausea with vomiting, unspecified - Discharge Dispostion Condition at time of disposition: Improved Decision to Admit order: Yes - Referrals - Patient Instructions - Post Discharge Activity
[2019-04-04] MEDS ORDERED: TAMSULOSIN HCL 0.4 MG CAP PO ONE (23:06)
--- NOTE | 2019-04-04 23:41 | HP ---
CHIEF COMPLAINT: Abdominal Pain PCP: Dr. Davis HISTORY OF PRESENT ILLNESS: 49 F with PMH significant for renal calculi and GERD (s/p Philip fundoplication ) who presents today with 1 day of nausea and abdominal pain. She was discharged from this hospital 2 days ago after being treated with laser lithotripsy for a 7mm stone that was in the distal third of the left ureter. She was also seen earlier today in the ED but did not have abdominal pain and nausea to this extent and was able to go home. After going home she tried to eat some soup, felt nauseous and immediately returned. She endorses not feeling abdominal pain or nauseous after her procedure on Friday, then on Friday she began having nausea without vomiting, and abdominal pain which has gradually worsened. She localizes the pain midline abdominally and to the right upper and lower quadrants of the abdomen. She believes it is due to the fundoplication procedure she had approximately a year ago. She has had one episode of diarrhea since returning to the hospital in the evening today. She notes some hematuria in the morning today, but has not had any dysuria since her procedure on Friday. She does not endorse back pain, or pain in the groin region. She has felt chills but denies subjective fevers, denies chest pain, and shortness of breath. ER course was notable for: (1)Patient had a CT Abdomen and Pelvis completed with few tiny gas bubbles at the right margin of the Philip fundoplication which may be intraluminal but precise location is uncertain. (2)Was given Zofran 4mg (x2), Morphine 2mg, Ativan 1 mg (x2), Reglan 10 mg, and pepcid 20 mg, Kdur 20 mEq given, and started on 1L of NS. (3)Ceftriaxone 1 gram, Flomax 0.8 mg was given. Recent Travel: None PAST MEDICAL HISTORY: Kidney Stones PAST SURGICAL HISTORY: Philip fundoplication, cholecystecomy Social History: Smoking: Denies Alcohol: Denies Drugs: Denies Family History: Denies Allergies No Known Allergies Allergy (Verified 04/04/19 09:30) HOME MEDICATIONS: Home Medications Medication Instructions Recorded Tamsulosin HCl [Flomax -] 0.4 mg PO DAILY@0830 #30 cap.er.24h 04/03/19 Cephalexin Monohydrate [Keflex -] 500 mg PO BID #14 capsule 04/04/19 REVIEW OF SYSTEMS CONSTITUTIONAL: chills Absent: fever, diaphoresis, generalized weakness, malaise, loss of appetite, weight change HEENT: Absent: rhinorrhea, nasal congestion, throat pain, throat swelling, difficulty swallowing, mouth swelling, ear pain, eye pain, visual changes CARDIOVASCULAR: Absent: chest pain, syncope, palpitations, irregular heart rate, lightheadedness , peripheral edema RESPIRATORY: Absent: cough, shortness of breath, dyspnea with exertion, orthopnea, wheezing, stridor, hemoptysis GASTROINTESTINAL: abdominal pain, nausea, diarrhea Absent: abdominal distension,vomiting, constipation, melena, hematochezia GENITOURINARY: hematuria Absent: dysuria, frequency, urgency, hesitancy, flank pain, genital pain MUSCULOSKELETAL: Absent: myalgia, arthralgia, joint swelling, back pain, neck pain NEUROLOGIC: headache Absent: focal weakness or paresthesias, dizziness, unsteady gait, seizure, mental status changes, bladder or bowel incontinence PHYSICAL EXAMINATION Vital Signs - 24 hr 04/04/19 04/04/19 04/04/19 15:31 15:32 19:49 Temperature 98.1 F Pulse Rate [ 80 60 Left Radial] Respiratory 16 18 Rate Blood Pressure 0/0 L Blood Pressure 126/77 141/78 [Left Arm] O2 Sat by Pulse 98 100 Oximetry (%) GENERAL: Patient in distress, Awake, alert, and fully oriented HEAD: Normal with no signs of trauma. EYES: Pupils equal, round and reactive to light, extraocular movements intact LUNGS: Breath sounds equal, clear to auscultation bilaterally. No wheezes, and no crackles. HEART: Regular rate and rhythm, normal S1 and S2 without murmur, rub or gallop. ABDOMEN: Tender to palpation in the right upper and lower quadrants, tender in the epigastric region. Non tender in the suprapubic region. Not distended, normoactive bowel sounds, no guarding, no rebound, no masses. MUSCULOSKELETAL: Left sided CVA tenderness UPPER EXTREMITIES: 2+ pulses, warm, well-perfused. . LOWER EXTREMITIES: 2+ pulses, warm, well-perfused. NEUROLOGICAL: Cranial nerves II-XII intact. Normal speech. PSYCHIATRIC: Cooperative at times, but would stop replying and ignore examiner occasionally. Laboratory Results - last 24 hr 04/04/19 04/04/1919 15:54 15:54 15:54 WBC 11.2 H RBC 4.12 Hgb 11.9 Hct 35.8 MCV 86.9 MCH 28.9 MCHC 33.2 RDW 13.4 Plt Count 189 MPV 9.9 Absolute Neuts (auto) 8.6 H Neutrophils % 76.2 Lymphocytes % 14.9 Monocytes % 8.2 Eosinophils % 0.2 Basophils % 0.5 Nucleated RBC % 0 Sodium 141 Potassium 3.1 L Chloride 106 Carbon Dioxide 24 Anion Gap 11 BUN 10.7 Creatinine 0.9 Est GFR (CKD-EPI)AfAm 88.25 Est GFR (CKD-EPI)NonAf 76.14 Random Glucose 113 H Calcium 8.6 Total Bilirubin 0.5 AST 34 ALT 52 Alkaline Phosphatase 73 Creatine Kinase 115 Troponin I < 0.02 Total Protein 6.7 Albumin 3.6 Lipase 04/04/19 15:54 WBC RBC Hgb Hct MCV MCH MCHC RDW Plt Count MPV Absolute Neuts (auto) Neutrophils % Lymphocytes % Monocytes % Eosinophils % Basophils % Nucleated RBC % Sodium Potassium Chloride Carbon Dioxide Anion Gap BUN Creatinine Est GFR (CKD-EPI)AfAm Est GFR (CKD-EPI)NonAf Random Glucose Calcium Total Bilirubin AST ALT Alkaline Phosphatase Creatine Kinase Troponin I Total Protein Albumin Lipase 64 L ASSESSMENT/PLAN: 49 F with PMH of renal calculi who presents today with abdominal pain and left sided flank pain likely due to recurrent kidney stone causing emphysematous pyelonephritis. 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 However CT shows 7 mm stone today at or just beyond left ureterovesical junction with small gas bubble in the kidney. WBC is 11.2. NS @ 75 ml/hr Meropenem and Vancomycin given Consulted Urology Consulted ID 2)Abdominal pain Patient complaining of abdominal pain and nausea. CT scan also noted gas bubbles at right margin of Philip fundoplication, precise location uncertain. Morphine 2 mg IV PRN Zofran 4 mg IV PRN GI consulted 3)Hypokalemia Patient was given 20 mEq of K+ in the ED. Will follow up in AM and give 20 mEq if K+ <3.5 DVT Prophylaxis: SCD's F: NS @75 ml/hr E: Trend BMP N: NPO Dispo: Admit to medicine floors Problem List - Problem (1) Epigastric abdominal pain Code(s): R10.13 - EPIGASTRIC PAIN (2) Hydronephrosis of left kidney Code(s): N13.30 - UNSPECIFIED HYDRONEPHROSIS (3) Left nephrolithiasis Code(s): N20.0 - CALCULUS OF KIDNEY (4) UTI (urinary tract infection) Code(s): N39.0 - URINARY TRACT INFECTION, SITE NOT SPECIFIED Visit type - Emergency Visit Emergency Visit: Yes ED Registration Date: 04/04/19 Care time: The patient presented to the Emergency Department on the above date and was hospitalized for further evaluation of their emergent condition. - New Patient This patient is new to me today: Yes Date on this admission: 04/04/19 - Critical Care Critical Care patient: No ATTENDING PHYSICIAN STATEMENT I saw and evaluated the patient. I reviewed the resident's note and discussed the case with the resident. I agree with the resident's findings and plan as documented. SUBJECTIVE: OBJECTIVE: ASSESSMENT AND PLAN:
[2019-04-04] MEDS ORDERED: TAMSULOSIN HCL 0.4 MG CAP ONE (23:43)
[2019-04-04] MEDS ORDERED: LACTATED RINGERS SOLUTION 1,000 ML IV SCH (23:45)
--- NOTE | 2019-04-04 23:45 | PN ---
Teaching Attending Note ATTENDING PHYSICIAN STATEMENT I saw and evaluated the patient. I reviewed the resident's note and discussed the case with the resident. I agree with the resident's findings and plan as documented. Seen and examined; please refer to resident note for further historical information. Briefly, this is a 49 y/o female presenting to the ER with a CC of abdominal pain similar to what she had prior to her fundopication (similar to severe GERD) and pain similar to renal stone/UTI. She was discharged 04/03 for hydronephrosis and stent placement; stent fell out at that time (please see DC summary for further historical information). She was seen earlier in the ER and diagnosed with a UTI and was treated with abx and then discharged on keflex ; at that time urology told ER that she had laser procedure to the stone and it was gone. She then returned with continued pain. Imaging was now obtained and CT shows moderate hydroureteronephrosis due to 7mm calculus at or just beyond the uvj. There may be another calculus in the prox. left ureter. Small gas bubble noted in the proximal L-renal pelvis with some free pelvic fluid. Addendum states that there is gas bubbles to the R-side of the sophie but when I spoke to the radiologist with imaging combination saw operator he told me they were very likely intraluminal and could be a normal finding given the anatomical changes done with the procedure. She is stable. No urine culture obtained last visit and no prior micro; she does hav documented urinary tract obstruction which guidelines dictate requires ESBL and MRSA coverage. Giving vanco and merrem and consulting ID given abx required. VS, labs,imaging reviewed NAD, AAO, anxious RRR s1/2 NC AT EOMI Mild flank pain to fist percussion L>R Tender to palpation upper abdomen, ND, +BS CN2-12 wnl, no fnd Normal mood, appropriate behavior Prelim CT discussed with radiology No prior micro EKG reviewed ASSESSMENT AND PLAN: Patient presents with abdominal pain/L-flank pain; she is found to have a +UA with known obstruction and symptoms with imaging findings suggestive of emphysematious urinary infection. She is found to have bubbling by the R-side of her sophie fundopication with similar sx. As she had the laser procedure and urology states that the stone was gone, the calculi seen on imaging may represent new formation # Acute cystitis with emphasematous features with concurrent obstruction -Followup final read to further characterize the gas bubbles. # L-hydroureteronephrosis 2/2 stones, recurring, s/p laser procedure. # Recurring renal stones # Potential sophie anatomical issue # Anxiety
[2019-04-04] MEDS ORDERED: CEFTRIAXONE 1 GM in DEXTROSE 5%-WATER - 50 ML IVPB SCH (23:58)
[2019-04-05] MEDS: KCL 10 MEQ IVPB 10 MEQ/100 ML INFUS.BAG IVPB SCH ×3 (00:12→00:57)
[2019-04-05] MEDS ORDERED: DEXTROSE 5%-WATER - 50 ML IVPB ONE (00:38)
[2019-04-05] MEDS ORDERED: cefTRIAXone SODIUM 1 GM VIAL ONE (00:38)
[2019-04-05] MEDS: MORPHINE SULFATE 2 MG/ML VIAL IVPUSH PRN ×3 (00:42→21:49)
[2019-04-05] MEDS: SODIUM CHLORIDE 1,000 ML IV SCH (00:46)
[2019-04-05] MEDS: PANTOPRAZOLE SODIUM 40 MG VIAL IVPUSH SCH ×2 (00:49→10:01)
[2019-04-05] MEDS ORDERED: VANCOMYCIN HCL 1,500 MG in DEXTROSE 5%-WATER - 500 ML IVPB SCH ×2 (01:15→13:00)
[2019-04-05 01:29] VITALS: BMI 27.6
[2019-04-05] MEDS: MEROPENEM 1 GM in DEXTROSE 5%-WATER 100 ML IVPB SCH ×2 (02:34→10:01)
[2019-04-05] MEDS ORDERED: MEROPENEM 1 GM VIAL (RESTRICTED TO ID) IVPB ONE ×2 (04:31→09:46)
[2019-04-05] MEDS ORDERED: DEXTROSE 5%-WATER 100 ML IVPB ONE ×2 (04:31→09:47)
[2019-04-05 07:36] LABS: ALBUMIN 2.7 g/dl (3.4-5.0); BILIRUBIN,TOTAL 0.5 mg/dL (0.2-1); BLOOD UREA NITROGEN 7.9 mg/dL (7-18); CALCIUM 7.7 mg/dL (8.5-10.1); CREATININE 0.6 mg/dL (0.55-1.3); POTASSIUM 3.6 mmol/L (3.5-5.1); TOT PROT 5.3 g/dl (6.4-8.2)
[2019-04-05 07:48] LABS: BASO % 0.3 % (0-2.0); HEMATOCRIT 28.6 % (32.4-45.2); HEMOGLOBIN 9.9 GM/dL (10.7-15.3); LYMPH % 26.1 % (8-40); MCH 30.1 pg (25.7-33.7); MCHC 34.7 g/dl (32.0-36.0); MEAN CELL VOLUME 86.9 fl (80-96); MEAN PLT VOLUME 10.3 fl (7.5-11.1); MONO % 11.9 % (3.8-10.2); NEUT % 61.7 % (42.8-82.8); PLATELET COUNT 142 K/MM3 (134-434); RDW 13.5 % (11.6-15.6); WHITE BLOOD COUNT 9.1 K/mm3 (4.0-10.0)
[2019-04-05 08:02] LABS: INR 1.13 (0.83-1.09); PROTHROMBIN TIME (PATIENT) 13.4 SEC (9.7-13.0)
[2019-04-05 08:04] LABS: ACTIVATED PTT 30.3 SECONDS (25.2-36.5)
--- NOTE | 2019-04-05 11:13 | CON.GI ---
Consult Consult Specialty:: Gastroenterology Referred by:: Dr. Meyer Reason for Consultation:: Abdominal pain, abnormal imaging - History of Present Illness History of Present Illness: 49yo female h/o cholecystectomy, renal stones, GERD s/p Philip fundoplication () at [facility] presenting with worsening abdominal pain, n/v x 2 days. Pt reports developing worsening left flank and suprapubic pain on with associated nausea prompting hospitalization on Friday. Initially states she went to [facility] then discharged with analgesics. Then came to [facility] due to persisting pain. CT imaging revealing left urethral stone s/p lithotripsy and stenting on 04/02. Pt discharged on friday however had recurrent pain mostly in epigastrium with associated nausea after attempting to eat soup yesterday, feels need to vomit though unable in setting of recent fundoplication though has been retching. Currently feeling better, mild upper abdominal discomfort and dysuria, denies nausea, fever/chills. Repeat CT imaging revealing migrated stone now at UVJ with hydronephrosis and air bubble within pelvis. Also initial concern for air bubbles at margin of region of fundoplication, not reported on final reading. - History Source History Provided By: Patient - Alcohol/Substance Use Hx Alcohol Use: No - Smoking History Smoking history: Never smoked Have you smoked in the past 12 months: No Home Medications - Allergies Allergies/Adverse Reactions: Allergies Allergy/AdvReac Type Severity Reaction Status Date / Time No Known Allergies Allergy Verified 04/04/19 09:30 - Home Medications Home Medications: Ambulatory Orders Tamsulosin HCl [Flomax -] 0.4 mg PO DAILY@0830 #30 cap.er.24h 04/03/19 Cephalexin Monohydrate [Keflex -] 500 mg PO 04/05/19 Cholecalciferol (Vitamin D3) [Vitamin D3] 50,000 unit PO WEEKLY 04/05/19 Gabapentin 300 mg PO DAILY 04/05/19 Ibuprofen [Motrin -] 600 mg PO PRN 04/05/19 Review of Systems - Review of Systems Constitutional: reports: No Symptoms Cardiovascular: reports: No Symptoms Respiratory: reports: No Symptoms Gastrointestinal: reports: Abdominal Pain, Nausea Genitourinary: reports: Burning, Dysuria Physical Exam-GI Vital Signs: Vital Signs Temperature 98.8 F 04/05/19 06:12 Pulse Rate 63 04/05/19 06:12 Respiratory Rate 20 04/05/19 06:12 Blood Pressure 100/59 L 04/05/19 06:12 O2 Sat by Pulse Oximetry (%) 98 04/05/19 01:19 Constitutional: Yes: Well Nourished, No Distress, Calm Cardiovascular: Yes: WNL, Regular Rate and Rhythm Respiratory: Yes: WNL, Regular, CTA Bilaterally ...Palpate: Yes: Other (Abd soft, mild tenderness in periumbilical and epigastric region on palpation, nondistended, no rebound, guarding or rigidity) Labs: CBC, BMP 04/05/19 06:16 04/05/19 06:16 INR, PTT INR 1.13 (0.83-1.09) H 04/05/19 06:16 Imaging - Results Cat Scan: Report Reviewed, Image Reviewed Problem List - Problems (1) Epigastric abdominal pain Assessment/Plan: 49yo female h/o cholecystectomy, renal stones, GERD s/p Philip fundoplication () presenting with worsening abdominal pain, n/v x 2 days with evidence of left urethral stone s/p lithotripsy and stent on 04/02 with recurrent abdominal pain mostly epigastric. Repeat CT imaging initially with concern for air near region of fundoplication ?intraluminal, though final report revealing stone at UVJ with hydronephrosis and air bubbles in pelvis, no free air. Abd exam benign. Etiology for pain likely secondary to persisting/migrated renal stone, low clinical suspicion for gastric pathology or fundoplication tear/wrap slippage/malfunction. -Could obtain barium swallow/UGI series with gastrograffin to further evaluate -Continue PPI daily -Further recommendations regarding renal stone/hydronephrosis per urology Code(s): R10.13 - EPIGASTRIC PAIN
--- NOTE | 2019-04-05 13:47 | PN ---
Physical Exam: SUBJECTIVE: Patient seen and examined. Very anxious. Endorses 6/10 midepigastric pain; pain does not radiate. Associated with nausea, but states she cannot and has not been able to vomit since the Philip fundoplication procedure. Pt had 1 nonbloody "very very large diarrhea" overnight. OBJECTIVE: Vital Signs Period Temp Pulse Resp BP Sys/[place] Pulse Ox Last 24 Hr 98.1 F-99.1 F 60-80 16-20 0-141/0-78 98-100 GENERAL: The patient is awake, alert, and fully oriented, in mild distress. LUNGS: Breath sounds equal, clear to auscultation bilaterally, no wheezes, no crackles, no accessory muscle use. HEART: Regular rate and rhythm, S1, S2 without murmur, rub or gallop. ABDOMEN: Midline scar noted from prior C-sxn. Midepigastric and periumbilical tenderness to palpation. Soft, nondistended, normoactive bowel sounds, no guarding. EXTREMITIES: 2+ pulses, warm, well-perfused, no edema. PSYCH: Anxious mood, affect appropriate to mood. Laboratory Results - last 24 hr Laboratory Last Values WBC 9.1 K/mm3 (4.0-10.0) 04/05/19 06:16 RBC 3.30 M/mm3 (3.60-5.2) L 04/05/19 06:16 Hgb 9.9 GM/dL (10.7-15.3) L 04/05/19 06:16 Hct 28.6 % (32.4-45.2) L D 04/05/19 06:16 MCV 86.9 fl (80-96) 04/05/19 06:16 MCH 30.1 pg (25.7-33.7) 04/05/19 06:16 MCHC 34.7 g/dl (32.0-36.0) 04/05/19 06:16 RDW 13.5 % (11.6-15.6) 04/05/19 06:16 Plt Count 142 K/MM3 (134-434) D 04/05/19 06:16 MPV 10.3 fl (7.5-11.1) 04/05/19 06:16 Absolute Neuts (auto) 5.6 K/mm3 (1.5-8.0) 04/05/19 06:16 Neutrophils % 61.7 % (42.8-82.8) 04/05/19 06:16 Lymphocytes % 26.1 % (8-40) D 04/05/19 06:16 Monocytes % 11.9 % (3.8-10.2) H 04/05/19 06:16 Eosinophils % 0.0 % (0-4.5) D 04/05/19 06:16 Basophils % 0.3 % (0-2.0) 04/05/19 06:16 Nucleated RBC % 0 % (0-0) 04/05/19 06:16 PT with INR 13.40 SEC (9.7-13.0) H 04/05/19 06:16 INR 1.13 (0.83-1.09) H 04/05/19 06:16 PTT (Actin FS) 30.3 SECONDS (25.2-36.5) 04/05/19 06:16 Sodium 142 mmol/L (136-145) 04/05/19 06:16 Potassium 3.6 mmol/L (3.5-5.1) 04/05/19 06:16 Chloride 108 mmol/L (98-107) H 04/05/19 06:16 Carbon Dioxide 28 mmol/L (21-32) 04/05/19 06:16 Anion Gap 6 MMOL/L (8-16) L 04/05/19 06:16 BUN 7.9 mg/dL (7-18) 04/05/19 06:16 Creatinine 0.6 mg/dL (0.55-1.3) 04/05/19 06:16 Est GFR (CKD-EPI)AfAm 125.80 04/05/19 06:16 Est GFR (CKD-EPI)NonAf 108.54 04/05/19 06:16 Random Glucose 96 mg/dL (74-106) 04/05/19 06:16 Calcium 7.7 mg/dL (8.5-10.1) L 04/05/19 06:16 Magnesium 2.0 mg/dL (1.8-2.4) 04/05/19 06:16 Total Bilirubin 0.5 mg/dL (0.2-1) 04/05/19 06:16 AST 25 U/L (15-37) 04/05/19 06:16 ALT 45 U/L (13-61) 04/05/19 06:16 Alkaline Phosphatase 61 U/L (45-117) 04/05/19 06:16 Creatine Kinase 115 U/L (26-192) 04/04/19 15:54 Troponin I < 0.02 ng/ml (0.00-0.05) 04/04/19 15:54 Total Protein 5.3 g/dl (6.4-8.2) L 04/05/19 06:16 Albumin 2.7 g/dl (3.4-5.0) L 04/05/19 06:16 Lipase 64 U/L (73-393) L 04/04/19 15:54 Urine Color Yellow 04/05/19 15:20 Urine Appearance Clear 04/05/19 15:20 Urine pH 7.0 (5.0-8.0) D 04/05/19 15:20 Ur Specific [place] 1.005 (1.010-1.035) L 04/05/19 15:20 Urine Protein Negative (NEGATIVE) 04/05/19 15:20 Urine Glucose (UA) Negative (NEGATIVE) 04/05/19 15:20 Urine Ketones Negative (NEGATIVE) 04/05/19 15:20 Urine Blood 3+ (NEGATIVE) H 04/05/19 15:20 Urine Nitrite Negative (NEGATIVE) 04/05/19 15:20 Urine Bilirubin Negative (NEGATIVE) 04/05/19 15:20 Urine Urobilinogen 0.2 mg/dL (0.2-1.0) 04/05/19 15:20 Ur Leukocyte Esterase Trace (NEGATIVE) 04/05/19 15:20 Blood Type A POSITIVE 04/05/19 06:16 Antibody Screen Negative 04/05/19 06:16 Active Medications Current Medications Current Medications Sodium Chloride (Normal Saline -) 1,000 mls @ 75 mls/hr IV ASDIR JUAN RAMON Last Admin: 04/05/19 00:46 Dose: 75 mls/hr Morphine Sulfate (Morphine Sulfate) 2 mg IVPUSH Q6H PRN PRN Reason: PAIN LEVEL 4 - 6 Last Admin: 04/05/19 11:06 Dose: 2 mg Ondansetron HCl (Zofran Injection) 4 mg IVPUSH Q6H PRN PRN Reason: NAUSEA Pantoprazole Sodium (Protonix Iv) 40 mg IVPUSH DAILY [facility] Last Admin: 04/05/19 10:01 Dose: 40 mg Tamsulosin HCl (Flomax -) 0.4 mg PO DAILY@0830 [facility] Imaging: ABD XR: PELVIC PHLEBOLITH. CLIPS FROM PRIOR CHOLECYSTECTOMY ASSESSMENT/PLAN: 49 y.o. F PMH GERD s/p Philip fundoplication, L sided nephrolithiasis s/p lithotripsy and stent placement 04/03/19 (stent fell out post-procedure) presented with epigastric pain and nausea without emesis. Found to have a 7mm stone at/ just beyond left UVJ and gas @ rt margin of Philip fundoplication. #Hydroureteronephrosis 2/2 L nephrolithiasis -S/p Urology-performed lithotripsy w/ stent placement 04/03/19; subsequently stent fell out, uro aware -Repeat CT abd/pel: 7mm left UVJ calculus w/ moderately severe hydronephrosis. Stone has migrated distally since 04/02/19. An air bubble seen w/in left renal pelvis- poss related to recent manipulation or gas-forming organism. Hepatomegaly & diffuse fatty infiltration of liver. Free pelvic fluid. -OR tomorrow for repeat lithotropsy, NPO at midnight -Uro on board (Dr. Mcmanus) #Epigastric pain -F/u upper GI series -GI following #Pain control -Morphine 2g IV q6h PRN #Nausea -Zofran 4mg IV q6h PRN #FEN -NS @75 mL/ hr -Monitor lytes -Regular diet, NPO at midnight #DVT PPX -SCDs Visit type - Emergency Visit Emergency Visit: No - New Patient This patient is new to me today: No - Critical Care Critical Care patient: No ATTENDING PHYSICIAN STATEMENT I saw and evaluated the patient. I reviewed the resident's note and discussed the case with the resident. I agree with the resident's findings and plan as documented. SUBJECTIVE: OBJECTIVE: ASSESSMENT AND PLAN:
--- NOTE | 2019-04-05 15:22 | CON.GU ---
Consult - History of Present Illness History of Present Illness: 49 yo female s/p recent ureteroscopy/laser litho for 7mm LDU stone now readmitted after pulling her stent out and recurrence of pain. CT shows left DU fragments, No fever/chills - Alcohol/Substance Use Hx Alcohol Use: No - Smoking History Smoking history: Never smoked Have you smoked in the past 12 months: No Home Medications - Allergies Allergies/Adverse Reactions: Allergies Allergy/AdvReac Type Severity Reaction Status Date / Time No Known Allergies Allergy Verified 04/04/19 09:30 - Home Medications Home Medications: Ambulatory Orders Tamsulosin HCl [Flomax -] 0.4 mg PO DAILY@0830 #30 cap.er.24h 04/03/19 Cephalexin Monohydrate [Keflex -] 500 mg PO 04/05/19 Cholecalciferol (Vitamin D3) [Vitamin D3] 50,000 unit PO WEEKLY 04/05/19 Cyclobenzaprine HCl [Flexeril 10 mg] 10 mg PO BID PRN 04/05/19 Gabapentin 300 mg PO DAILY 04/05/19 Ibuprofen [Motrin -] 600 mg PO PRN 04/05/19 Physical Exam- Vital Signs: Vital Signs Temperature 98.5 F 04/05/19 12:00 Pulse Rate 66 04/05/19 12:00 Respiratory Rate 20 04/05/19 12:00 Blood Pressure 125/77 04/05/19 12:00 O2 Sat by Pulse Oximetry (%) 98 04/05/19 09:00 Labs: CBC, BMP 04/05/19 06:16 04/05/19 06:16 Imaging - Results Cat Scan: Report Reviewed Problem List - Problems (1) Left nephrolithiasis Code(s): N20.0 - CALCULUS OF KIDNEY Assessment/Plan trial of conservative management with IVF hydration, analgesics, flomax if fails then repeat ureteroscopy
--- NOTE | 2019-04-05 16:16 | PN ---
Teaching Attending Note Name of Resident: Celsa Cohen ATTENDING PHYSICIAN STATEMENT I saw and evaluated the patient. I reviewed the resident's note and discussed the case with the resident. I agree with the resident's findings and plan as documented. SUBJECTIVE:feels much better today. slightly nauseated but overall better. had large watery BM last night. denies Cp, SOB, fevr, chills, N/V/C or hematuria OBJECTIVE: Last Vital Signs Temp Pulse Resp BP Pulse Ox 98.5 F 66 20 125/77 98 04/05/19 12:00 04/05/19 12:00 04/05/19 12:00 04/05/19 12:00 04/05/19 09:00 General NAD CV S1 s2 RRR no murmur/rub/gallop Lungs CTA B/L no wheezing/rales/rhonchi Abdomen soft NT/ND no flank pain ASSESSMENT AND PLAN: 49yo F with PMH GERD s/p sophie fundoplication and nephrolithasis with 7mm obstructing stone with lithotripsy and stent placement 04/03 presentd with worsening abdominal pain and nausea with dry heaves and found to have a 7 mm obstructing stone and some gas found around the region of the fundoplication 1. L nephrolithasis with moderate hydro-s/p lithotripsy and stent placement on however stent fell out and urology said patient didnt require furhter intervention at this time, radiology now reading stone is still there. AXR done to further evaluate. may need repeat stent placement. was started on meropenem for gas in the renal pelvis but this is more consistent with recent manipulation of Gu tract. pt is afebrile with mild leukoctosis and clinically stable and do not think she has emphysematous pyelo. will d/c meropenem and obtain UA 2. Epigastric pain- concern for leakage from fundoplication. pt was having dry heaves but denies vomiting. will do upper Gi series tomorrow to further evaluate. GI on board 3. DVT ppx- hep sq
[2019-04-05 16:39] LABS: URINE APPEARANCE CLEAR; URINE BILIRUBIN NEGATIVE (NEGATIVE); URINE COLOR YELLOW; URINE GLUCOSE (UA) NEGATIVE (NEGATIVE); URINE KETONE NEGATIVE (NEGATIVE); URINE LEUK ESTERASE TRACE (NEGATIVE); URINE NITRITE NEGATIVE (NEGATIVE); URINE PROTEIN NEGATIVE (NEGATIVE); URINE UROBILINOGEN 0.2 mg/dL (0.2-1.0)
[2019-04-05 17:55] LABS: EPI CELLS 6.1 /HPF (0-5/HPF); URINE BACTERIA 2.9 /hpf (NEGATIVE); URINE RBC 2.7 /hpf (0-4); URINE WBC 8.1 /hpf (0-5)
[2019-04-05] MEDS ORDERED: MEROPENEM 1 GM in DEXTROSE 5%-WATER 100 ML IVPB SCH (18:00)
--- NOTE | 2019-04-05 18:46 | PN ---
Progress Note (short form) - Note Progress Note: ct shows stone fragments from treated stone have recollected at uvj continue medical expulsive therapy overnight if pain persists into morning will replace stent at 8 am
[2019-04-06] MEDS: ONDANSETRON 4 MG/2 ML VIAL IVPUSH PRN (05:41)
[2019-04-06] MEDS: MORPHINE SULFATE 2 MG/ML VIAL IVPUSH PRN (06:19)
[2019-04-06 07:25] LABS: BASO % 0.6 % (0-2.0); HEMATOCRIT 33.3 % (32.4-45.2); HEMOGLOBIN 11.4 GM/dL (10.7-15.3); LYMPH % 32.2 % (8-40); MCH 29.8 pg (25.7-33.7); MCHC 34.1 g/dl (32.0-36.0); MEAN CELL VOLUME 87.3 fl (80-96); MEAN PLT VOLUME 10.6 fl (7.5-11.1); MONO % 8.5 % (3.8-10.2); NEUT % 57.7 % (42.8-82.8); PLATELET COUNT 178 K/MM3 (134-434); RBC 3.81 M/mm3 (3.60-5.2); RDW 13.4 % (11.6-15.6); WHITE BLOOD COUNT 9.2 K/mm3 (4.0-10.0)
[2019-04-06 08:23] LABS: ALBUMIN 3.2 g/dl (3.4-5.0); BILIRUBIN,TOTAL 0.5 mg/dL (0.2-1); BLOOD UREA NITROGEN 8.4 mg/dL (7-18); CALCIUM 7.9 mg/dL (8.5-10.1); CREATININE 0.7 mg/dL (0.55-1.3); MAGNESIUM 2.1 mg/dL (1.8-2.4); PHOSPHOROUS 2.6 mg/dL (2.5-4.9); POTASSIUM 3.5 mmol/L (3.5-5.1); TOT PROT 6.1 g/dl (6.4-8.2)
[2019-04-06] MEDS: PANTOPRAZOLE SODIUM 40 MG VIAL IVPUSH SCH (10:19)
--- NOTE | 2019-04-06 10:32 | PN ---
Progress Note (short form) - Note Progress Note: patient was scheduled for ureteral stent placement for 8am. At 6:30 she reported that she had passed several stone fragments overnight and was feeling no renal colic. She did not want or need the stent. Subsequently this morning she is having recurrent renal colic patient started on toradol. Cont medical expulsive therapy. US ordered. she should pass these fragements, if not can place ureteral stent later today
[2019-04-06] MEDS: KETOROLAC TROMETHAMINE 30 MG/1 ML VIAL IVPUSH SCH ×2 (10:34→18:16)
[2019-04-06] MEDS: TAMSULOSIN HCL 0.4 MG CAP PO SCH (15:23)
--- NOTE | 2019-04-06 16:32 | PN ---
Physical Exam: SUBJECTIVE: Patient seen and examined. C/o some midepigastric pain. GI series performed today with no significant findings. Also pt c/o burning and pain with urination. Renal US shows left sided hydronephrosis. Pt passed small stone last night which was sent to the lab but distal left UVJ stone persists on imaging. Conservative management, possible stent placement tomorrow if stones do not pass. OBJECTIVE: Vital Signs Period Temp Pulse Resp BP Sys/[place] Pulse Ox Last 24 Hr 98.4 F-99.6 F 50-71 20-21 136-143/77-88 GENERAL: The patient is awake, alert, and fully oriented, in mild distress LUNGS: Breath sounds equal, clear to auscultation bilaterally, no wheezes, no crackles, no accessory muscle use. HEART: Regular rate and rhythm, S1, S2 without murmur, rub or gallop. ABDOMEN: Suprapubic scar from prev C-sxn. Midepigastric and LLQ tenderness to palpation. Soft, nondistended, normoactive bowel sounds, no guarding. EXTREMITIES: 2+ pulses, warm, well-perfused, no edema. PSYCH: Anxious mood, affect appropriate to mood. Laboratory Results - last 24 hr Active Medications Current Medications Sodium Chloride (Normal Saline -) 1,000 mls @ 75 mls/hr IV ASDIR [facility] Last Admin: 04/05/19 00:46 Dose: 75 mls/hr Ketorolac Tromethamine (Toradol Injection -) 30 mg IVPUSH Q8H-IV [facility] Stop: 04/11/19 10:29 Last Admin: 04/06/19 10:34 Dose: 30 mg Morphine Sulfate (Morphine Sulfate) 2 mg IVPUSH Q6H PRN PRN Reason: PAIN LEVEL 4 - 6 Last Admin: 04/06/19 06:19 Dose: 2 mg Ondansetron HCl (Zofran Injection) 4 mg IVPUSH Q6H PRN PRN Reason: NAUSEA Last Admin: 04/06/19 05:41 Dose: 4 mg Pantoprazole Sodium (Protonix Iv) 40 mg IVPUSH DAILY [facility] Last Admin: 04/06/19 10:19 Dose: 40 mg Tamsulosin HCl (Flomax -) 0.4 mg PO DAILY@0830 [facility] Last Admin: 04/06/19 15:23 Dose: Not Given ASSESSMENT/PLAN: 49 y.o. F PMH GERD s/p Philip fundoplication in May 2018, L sided nephrolithiasis s/p lithotripsy and stent placement 04/03/19 (stent fell out post -procedure) presented with epigastric pain and nausea without emesis. Found to have a 7mm stone at/ just beyond left UVJ and gas @ rt margin of [place] fundoplication. #Hydronephrosis 2/2 L nephrolithiasis -S/p Urology-performed lithotripsy w/ stent placement 04/03/19; subsequently stent fell out, uro aware -Repeat CT abd/pel 04/04/19: 7mm left UVJ calculus w/ moderately severe hydronephrosis. Stone has migrated distally since 04/02/19. An air bubble seen w/ in left renal pelvis- poss related to recent manipulation or gas-forming organism. Hepatomegaly & diffuse fatty infiltration of liver. Free pelvic fluid. -Passed small stone last night -Renal US shows left hydronephrosis -Possible OR tomorrow for stent placement if pt does not pass stone fragments; NPO at midnight -Uro on board (Dr. Mcmanus) #Epigastric pain -Upper GI series: No stricture, no herniations, no ulcerations -GI following #Pain control -Morphine 2g IV q6h PRN -Torodol 30mg IV q8h PRN #Nausea -Zofran 4mg IV q6h PRN #FEN -NS @75 mL/ hr -Monitor lytes -Tolerated late lunch, NPO at midnight #DVT PPX -SCDs Visit type - Emergency Visit Emergency Visit: No - New Patient This patient is new to me today: No - Critical Care Critical Care patient: No ATTENDING PHYSICIAN STATEMENT I saw and evaluated the patient. I reviewed the resident's note and discussed the case with the resident. I agree with the resident's findings and plan as documented. SUBJECTIVE: OBJECTIVE: ASSESSMENT AND PLAN:
--- NOTE | 2019-04-06 18:15 | PN ---
Teaching Attending Note Name of Resident: Celsa Cohen ATTENDING PHYSICIAN STATEMENT I saw and evaluated the patient. I reviewed the resident's note and discussed the case with the resident. I agree with the resident's findings and plan as documented. SUBJECTIVE: Still complains of LLQ/suprapubic pain, worse on urination. no hematuria. Passed small stone overnight. No fever/chills. OBJECTIVE: Afebrile, Hemodynamically Stable. Last Vital Signs Temp Pulse Resp BP Pulse Ox 98.4 F 50 L 20 140/77 98 04/06/19 11:00 04/06/19 11:00 04/06/19 11:00 04/06/19 11:00 04/05/19 09:00 HEENT - Atraumatic, Normocephalic. Heart - S1, S2, RRR Abdomen - RLQ/Suprapubic tenderness. Soft. Bowel Sounds normal. Extremities -no edema, noc steven swelling/tenderness. Laboratory Results - last 24 hr 04/05/19 04/06/19 04/06/19 15:20 06:12 06:12 WBC 9.2 RBC 3.81 Hgb 11.4 Hct 33.3 D MCV 87.3 MCH 29.8 MCHC 34.1 RDW 13.4 Plt Count 178 D MPV 10.6 Absolute Neuts (auto) 5.3 Neutrophils % 57.7 Lymphocytes % 32.2 D Monocytes % 8.5 Eosinophils % 1.0 D Basophils % 0.6 Nucleated RBC % 0 Sodium 140 Potassium 3.5 Chloride 107 Carbon Dioxide 26 Anion Gap 7 L BUN 8.4 Creatinine 0.7 Est GFR (CKD-EPI)AfAm 119.58 Est GFR (CKD-EPI)NonAf 103.18 Random Glucose 86 Calcium 7.9 L Phosphorus 2.6 Magnesium 2.1 Total Bilirubin 0.5 AST 39 H ALT 71 H Alkaline Phosphatase 68 Total Protein 6.1 L Albumin 3.2 L Urine WBC (Auto) 8.1 Urine RBC (Auto) 2.7 U Epithel Cells (Auto) 6.1 Urine Bacteria (Auto) 2.9 Current Medications Generic Name Dose Route Start Last Admin Trade Name Freq PRN Reason Stop Dose Admin Sodium Chloride 1,000 mls @ 75 mls/hr 04/04/19 23:45 04/05/19 00:46 Normal Saline - IV 75 mls/hr ASDIR JUAN RAMON Administration Ketorolac Tromethamine 30 mg 04/06/19 10:30 04/06/19 10:34 Toradol Injection - IVPUSH 04/11/19 10:29 30 mg Q8H-IV JUAN RAMON Administration Morphine Sulfate 2 mg 04/04/19 23:44 04/06/19 06:19 Morphine Sulfate IVPUSH 2 mg Q6H PRN Administration PAIN LEVEL 4 - 6 Ondansetron HCl 4 mg 04/04/19 23:44 04/06/19 05:41 Zofran Injection IVPUSH 4 mg Q6H PRN Administration NAUSEA Pantoprazole Sodium 40 mg 04/04/19 23:57 04/06/19 10:19 Protonix Iv IVPUSH 40 mg DAILY JUAN RAMON Administration Tamsulosin HCl 0.4 mg 04/06/19 15:23 04/06/19 15:23 Flomax - PO Not Given DAILY@0830 [facility] Home Medications Medication Instructions Recorded Tamsulosin HCl [Flomax -] 0.4 mg PO DAILY@0830 #30 cap.er.24h 04/03/19 Cephalexin Monohydrate [Keflex -] 500 mg PO 04/05/19 Cholecalciferol (Vitamin D3) 50,000 unit PO WEEKLY 04/05/19 [Vitamin D3] Cyclobenzaprine HCl [Flexeril 10 10 mg PO BID PRN 04/05/19 mg] Gabapentin 300 mg PO DAILY 04/05/19 Ibuprofen [Motrin -] 600 mg PO PRN 04/05/19 ASSESSMENT AND PLAN: 49 year old female with history of GERD s/p Philip Fundoplication and Nephrolithasis s/p Lithotripsy and Stent placement 04/03, presented with LLQ/ flank abdominal pain with nausea and retching. She was found to have a 7mm L UVJ obstructing stone with hydronephrosis. She was evakluated by urology and commenced on conservative therapy with Flomax and IV fluids with some success. The patient did pass a stone fragment overnight but still has obstruction on repeat US with persisting L hydronephrosis. She was also found to have air bubble in the region of the prior Philip Fondoplication. 1. Urinary Obstruction secondary to L ureteral calculus. s/p Lithotripsy with ongoing obstruction. Patient started to pass stone fragements. Urology evaluated and recommend continued conservative management. if no resolution by tomorrow, Urology will take to OR for re-stenting. Was empirically started on meropenem, now discontinued. Urine Cx negative. Afebrile. Will monitor. Continue IV fluids, Tamsulosin. Urology re-eval in AM. NPO from midnight. 2. Air Bubble noted in L renal pelvis on Abdominal imaging - likely due to recent instrumentation for lithotripsy. GI Series - normal, without ulceration or perforation. DVT Px - Heparin SQ GI Px - Protonix.
[2019-04-06] MEDS: HEPARIN NA (PORCINE) 5,000 UNITS/ML 1ML VIAL SQ SCH (21:48)
[2019-04-07] MEDS: KETOROLAC TROMETHAMINE 30 MG/1 ML VIAL IVPUSH SCH ×2 (01:07→11:21)
[2019-04-07] MEDS: ONDANSETRON 4 MG/2 ML VIAL IVPUSH PRN (01:07)
[2019-04-07] MEDS: SODIUM CHLORIDE 1,000 ML IV SCH (01:08)
[2019-04-07] MEDS: HEPARIN NA (PORCINE) 5,000 UNITS/ML 1ML VIAL SQ SCH ×2 (05:26→14:08)
[2019-04-07 07:39] LABS: BASO % 0.5 % (0-2.0); EOS % 0.7 % (0-4.5); HEMOGLOBIN 11.1 GM/dL (10.7-15.3); LYMPH % 29.5 % (8-40); MCH 29.7 pg (25.7-33.7); MCHC 34.7 g/dl (32.0-36.0); MEAN CELL VOLUME 85.6 fl (80-96); MEAN PLT VOLUME 10.5 fl (7.5-11.1); MONO % 7.7 % (3.8-10.2); NEUT % 61.6 % (42.8-82.8); PLATELET COUNT 198 K/MM3 (134-434); RBC 3.73 M/mm3 (3.60-5.2); RDW 13.5 % (11.6-15.6)
[2019-04-07] MEDS: TAMSULOSIN HCL 0.4 MG CAP PO SCH ×2 (08:07→08:16)
[2019-04-07 08:39] LABS: ALBUMIN 3.2 g/dl (3.4-5.0); BILIRUBIN,TOTAL 0.7 mg/dL (0.2-1); CALCIUM 8.5 mg/dL (8.5-10.1); CREATININE 0.6 mg/dL (0.55-1.3); MAGNESIUM 1.9 mg/dL (1.8-2.4); POTASSIUM 3.4 mmol/L (3.5-5.1); TOT PROT 6.2 g/dl (6.4-8.2)
[2019-04-07] MEDS: PANTOPRAZOLE SODIUM 40 MG VIAL IVPUSH SCH (09:35)
[2019-04-07] MEDS: KCL 10 MEQ IVPB 10 MEQ/100 ML INFUS.BAG IVPB SCH ×2 (09:35→11:21)
--- NOTE | 2019-04-07 10:23 | PN.GI ---
GI Progress Note Subjective: Pt seen/examined at bedside, feeling better, abdominal pain resolved, states she had passed stone fragments in urine, pending urology follow up. Tolerated diet yesterday, denies nausea or epigastric pain. Moved bowels yesterday. - Objective Vital Signs: Vital Signs Temperature 98.9 F 04/07/19 07:15 Pulse Rate 51 L 04/07/19 07:15 Respiratory Rate 21 H 04/07/19 07:15 Blood Pressure 140/77 04/07/19 07:15 O2 Sat by Pulse Oximetry (%) 98 04/06/19 21:00 Constitutional: Well Nourished, No Distress, Calm Cardiovascular: Yes: WNL, Regular Rate and Rhythm Respiratory: Yes: WNL, Regular, CTA Bilaterally ...Palpate: Yes: Other (Abd soft, nt, nd) Labs: CBC, BMP 04/07/19 06:59 04/07/19 06:59 INR, PTT INR 1.13 (0.83-1.09) H 04/05/19 06:16 Problem List - Problems (1) Epigastric abdominal pain Assessment/Plan: 49yo female h/o cholecystectomy, renal stones, GERD s/p Philip fundoplication () presenting with worsening abdominal pain, n/v x 2 days with evidence of left urethral stone s/p lithotripsy and stent on 04/02 with recurrent abdominal pain. Repeat CT imaging initially with concern for air near region of fundoplication ?intraluminal, though final report revealing stone at UVJ with hydronephrosis and air bubbles in pelvis, no free air. Abd pain resolved. UGI series unremarkable. -No further GI intervention indicated currently as symptoms have resolved -Can discontinue PPI -Further management per urology -If recurrent abdominal pain/nausea or further questions please recall GI Code(s): R10.13 - EPIGASTRIC PAIN
--- NOTE | 2019-04-07 12:54 | PN ---
Progress Note (short form) - Note Progress Note: patient passed several fragments yesterday and is pain free can feed and discharge home
[2019-04-07 14:54] VITALS: BP 139/79; PULSE 57; TEMP 98.8
[2019-04-07] MEDS ORDERED: POTASSIUM CHLORIDE TABS 20 MEQ TABLET.ER (FP) PO ONE (15:10)
--- NOTE | 2019-04-07 15:10 | PN ---
Teaching Attending Note Name of Resident: Celsa Cohen ATTENDING PHYSICIAN STATEMENT I saw and evaluated the patient. I reviewed the resident's note and discussed the case with the resident. I agree with the resident's findings and plan as documented. SUBJECTIVE: LLQ/suprapubic pain resolved s/p passed stone fragments overnight. No hematuria. No fever/chills. OBJECTIVE: Afebrile, Hemodynamically Stable.. Last Vital Signs Temp Pulse Resp BP Pulse Ox 98.8 F 57 L 20 139/79 98 04/07/19 09:00 04/07/19 09:00 04/07/19 09:00 04/07/19 09:00 04/07/19 09:00 Heart - S1, S2, RRR Lungs - clear to auscultation Abdomen - Soft, non-tender. Bowel Sounds normal. Extremities - no edema, no calf swelling/tenderness. Laboratory Results - last 24 hr 04/07/19 04/07/19 06:59 06:59 WBC 8.0 RBC 3.73 Hgb 11.1 Hct 32.0 L MCV 85.6 MCH 29.7 MCHC 34.7 RDW 13.5 Plt Count 198 MPV 10.5 Absolute Neuts (auto) 4.9 Neutrophils % 61.6 Lymphocytes % 29.5 Monocytes % 7.7 Eosinophils % 0.7 Basophils % 0.5 Nucleated RBC % 0 Sodium 141 Potassium 3.4 L Chloride 107 Carbon Dioxide 26 Anion Gap 8 BUN 8.0 Creatinine 0.6 Est GFR (CKD-EPI)AfAm 125.80 Est GFR (CKD-EPI)NonAf 108.54 Random Glucose 90 Calcium 8.5 Phosphorus 3.0 Magnesium 1.9 Total Bilirubin 0.7 AST 24 ALT 64 H Alkaline Phosphatase 68 Total Protein 6.2 L Albumin 3.2 L Current Medications Generic Name Dose Route Start Last Admin Trade Name Freq PRN Reason Stop Dose Admin Heparin Sodium (Porcine) 5,000 unit 04/06/19 22:00 04/07/19 14:08 Heparin - SQ 5,000 unit TID JUAN RAMON Administration Sodium Chloride 1,000 mls @ 75 mls/hr 04/04/19 23:45 04/07/19 01:08 Normal Saline - IV 75 mls/hr ASDIR JUAN RAMON Administration Ketorolac Tromethamine 30 mg 04/06/19 10:30 04/07/19 11:21 Toradol Injection - IVPUSH 08/04/19 10:29 Not Given Q8H-IV JUAN RAMON Morphine Sulfate 2 mg 04/04/19 23:44 04/06/19 06:19 Morphine Sulfate IVPUSH 2 mg Q6H PRN Administration PAIN LEVEL 4 - 6 Ondansetron HCl 4 mg 04/04/19 23:44 04/07/19 01:07 Zofran Injection IVPUSH 4 mg Q6H PRN Administration NAUSEA Pantoprazole Sodium 40 mg 04/04/19 23:57 04/07/19 09:35 Protonix Iv IVPUSH 40 mg DAILY JUAN RAMON Administration Tamsulosin HCl 0.4 mg 04/06/19 15:23 04/07/19 08:16 Flomax - PO 0.4 mg DAILY@0830 JUAN RAMON Administration ASSESSMENT AND PLAN: 49 year old female with history of GERD s/p Philip Fundoplication and Nephrolithasis s/p Lithotripsy and Stent placement 04/03, presented with LLQ/ flank abdominal pain with nausea and retching. She was found to have a 7mm L UVJ obstructing stone with hydronephrosis. She was evakluated by urology and commenced on conservative therapy with Flomax and IV fluids with some success. The patient did pass a stone fragment overnight but still has obstruction on repeat US with persisting L hydronephrosis. She was also found to have air bubble in the region of the prior Philip Fondoplication. 1. Urinary Obstruction secondary to L ureteral calculus. s/p Lithotripsy with ongoing obstruction. Patient pasxsed multiple stone fragements. Urology evaluated and recommend continued conservative management - patient cleared for discharge home. Was empirically started on meropenem, now discontinued. Urine Cx negative. Afebrile. Will discharge on tamsulosin with urology follow up. 2. Air Bubble noted in L renal pelvis on Abdominal imaging - likely due to recent instrumentation for lithotripsy. GI Series - normal, without ulceration or perforation. Cleared by GI for discharge. Medically optimized. Discharge on Tamsulosin with Urology out-patient follow up.
--- NOTE | 2019-04-07 16:57 | DS ---
Physical Exam: SUBJECTIVE: Patient seen and examined. In no acute distress. Passed 2 small stone fragments yesterday. Denies suprapubic tenderness/ dysuria/ hematuria/ CP / SOB/ abd pain/ dizziness/ myalgias/ fevers/ chills/ nausea/ vomiting. OBJECTIVE: Vital Signs Period Temp Pulse Resp BP Sys/[place] Pulse Ox Last 24 Hr 98.7 F-98.9 F 51-62 20-21 138-140/77-80 98-98 PHYSICAL EXAM GENERAL: The patient is awake, alert, and fully oriented, in no acute distress LUNGS: Breath sounds equal, clear to auscultation bilaterally, no wheezes, no crackles, no accessory muscle use. HEART: Regular rate and rhythm, S1, S2 without murmur, rub or gallop. ABDOMEN: Suprapubic scar from prev C-sxn. Minimal tenderness to palpation. Soft , nondistended, normoactive bowel sounds, no guarding. EXTREMITIES: 2+ pulses, warm, well-perfused, no edema. LABS Laboratory Results - last 24 hr HOSPITAL COURSE: 49 y.o. F PMH GERD s/p Philip fundoplication in May 2018, L sided nephrolithiasis s/p lithotripsy and stent placement 04/03/19 (stent fell out post -procedure) presented with epigastric pain and nausea without emesis. Found to have a 7mm stone at/ just beyond left UVJ. Repeat CT abd/pel on this visit showed 7mm left UVJ calculus w/ moderately severe hydronephrosis with distal migration of the stone since 04/02/19. Pt managed with medical expulsive therapies, IVF and pain control & passed 2 small stone fragments overnight with resolution of her abdominal pain and dysuria. Upper GI series negative; pt's abdominal pain has significantly subsided since admission. Discharged w/ Flomax. Spoke w/ pt regarding increasing PO water intake. Date of Admission:04/04/19 CT abd/pel w/o con 04/02: 7 mm distal left ureteral calculus with extensive left- sided hydronephrosis and hydroureter. Renal US 04/04: Moderate to marked left hydronephrosis is noted without obvious interval change in comparison to CT performed on 04/02/2019. Abd Pel CT w/ con 04/04: 1. 7 mm left UVJ calculus with moderately severe hydronephrosis. This stone has migrated distally since 04/02/2019. 2. An air bubble within the left renal pelvis. This may related to recent manipulation or possibly gas-forming organism. 3. Hepatomegaly and diffuse fatty infiltration of the liver. 4. Free pelvic fluid. Please see above discussion Upper GI series 04/06: No esophageal stricture is seen in the distal thoracic esophagus. No evidence of hiatal hernia, gastroesophageal reflux. No evidence of gastric, duodenal bulb ulcer. Bladder/ renal US 04/07: Persistent left-sided hydronephrosis since 03/27/2019. Please see above discussion. Date of Discharge: 04/07/19 Minutes to complete discharge: 36 Discharge Summary Reason For Visit: INTRACTABLE VOMITING WITH NAUSEA/EPIGASTRIC PAIN Condition: Stable - Instructions Diet, Activity, Other Instructions: Your visit: You presented to the hospital for stomach pain. You were treated with pain management and IV fluids. You also had some pain with urination. You were found to have a left kidney stone. You passed a piece of the stone and your symptoms have improved. Please follow up with urologist Dr. Mcmanus in 1 week. You were found to have an enlarged liver with elevated liver function tests. Please follow this up with your PCP for repeat lab testing in 1 week. Follow up with the following physicians: 1. Your primary care provider located at [facility] in 1 week. 2. Urology (Dr. Mcmanus- [phone]) in 1 week. Further intructions: You are being discharged to your home. Please continue to take all other medications as prescribed. Please make sure to stay hydrated and drink plenty of water. Please return to the ER if you have any signs or symptoms of pain or burning with urination, blood in your urine, chest pain, shortness of breath, palpitations, confusion, dizziness, abdominal pain, fevers, fatigue, vomiting, diarrhea, muscle pains or weakness. Please return to the ER if symptoms persist, worsen, or new symptoms arise. Referrals: Holden Mcmanus MD [Staff Physician] - Disposition: HOME - Home Medications Comprehensive Discharge Medication List: Ambulatory Orders Tamsulosin HCl [Flomax -] 0.4 mg PO DAILY@0830 #30 cap.er.24h 04/03/19 Cholecalciferol (Vitamin D3) [Vitamin D3] 50,000 unit PO WEEKLY 04/05/19 Cyclobenzaprine HCl [Flexeril 10 mg] 10 mg PO BID PRN 04/05/19 Gabapentin 300 mg PO DAILY 04/05/19 Ibuprofen [Motrin -] 600 mg PO Q8H PRN 04/05/19 This patient is new to me today: No Emergency Visit: No Critical Care patient: No - Discharge Referral Referred to [facility] No ATTENDING PHYSICIAN STATEMENT I saw and evaluated the patient. I reviewed the resident's note and discussed the case with the resident. I agree with the resident's findings and plan as documented. SUBJECTIVE: OBJECTIVE: ASSESSMENT AND PLAN:
== END 2019-04-07 15:26 | disposition home or self-care (01) | DRG 694 ==
LOC: JER 14:59 → JERBED 23:07 → J6S 04-05 00:12
PROVIDERS: ADMIT Internal Medicine
DX: N13.2 Hydronephrosis with renal and ureteral calculous obstruction (principal); K21.9 Gastro-esophageal reflux disease without esophagitis; E87.6 Hypokalemia; R10.13 Epigastric pain; F41.9 Anxiety disorder, unspecified; N30.80 Other cystitis without hematuria; R11.2 Nausea with vomiting, unspecified; R16.0 Hepatomegaly, not elsewhere classified
CPT/HCPCS: 36415; 74018-TC-FY; 74177-TC; 74240-TC-FY; 76775-TC; 76856-TC; 80053; 81003; 82360; 82550; 83690; 83735; 84100; 84484; 85025; 85610; 85730; 86850; 86900; 86901; 87086; 99282-25; J1644; J7030